=== PATIENT | female | born 1970 ===

== ENCOUNTER 2022-12-08 16:00 | Emergency (ER) | payer MEDICAID, SELFPAY ==
--- NOTE | ~2022-12-08 | CT_ITS ---
EXAMINATION: CT ABDOMEN AND PELVIS WITH CONTRAST CLINICAL INFORMATION: Epigastric, right upper quadrant pain. Concern for biliary disease COMPARISON: The report of right upper quadrant ultrasound does not indicate any overt acute right upper quadrant abnormality. TECHNIQUE: Multidetector volumetric images were obtained from the superior aspect of the liver through the pubic symphysis following administration 85 mL of Omnipaque 350 intravenous contrast. Sagittal and coronal reformatted images were obtained on the technologist's workstation. Oral contrast: No This CT examination was performed using dose optimization techniques as appropriate, variously including the following: *Automated exposure control *Adjustment of mA and/or kV according to patient size (this includes techniques or standardized protocols for targeted exams where dose is matched to indication/reason for exam; i.e. extremities or head) *Use of iterative reconstruction technique DLP: 591 mGy-cm FINDINGS: LUNG BASES: Nonspecific linear opacity left lower lung could be fibrosis or atelectasis. LIVER, GALLBLADDER, AND BILIARY TREE: No suspicious focal liver lesion. The gallbladder is contracted. No opaque calculus. No biliary dilation. PANCREAS: Fatty change. No suspicious mass. SPLEEN: The spleen is relatively small. No focal abnormality. ADRENAL GLANDS: Within normal limits KIDNEYS AND URETERS: The left kidney measures at least 10.9 cm in greatest length. The right kidney measures at least 5.4 cm in greatest length. There is diminished enhancement of the right kidney. There is no dilation of the collecting system. No suspicious renal mass. BLADDER: The bladder is not well distended. The bladder wall may be slightly thickened. GASTROINTESTINAL TRACT: No localized colonic wall thickening. No pericolonic fat stranding. No CT evidence of acute appendicitis. No significant small bowel dilation. The stomach is distended. ABDOMINAL WALL: There are some clips in the lower midline abdominal wall. There is a ventral hernia just below the umbilicus. There is some eventration of the abdominal wall. LYMPH NODES: There are no measurably enlarged abdominal or pelvic lymph nodes. There is no free intraperitoneal fluid. VASCULAR: There is no abdominal aortic aneurysm. The portal vein enhances. PELVIC VISCERA: No suspicious abnormality of the uterus or adnexa. OSSEOUS STRUCTURES: No suspicious focal lesion. There is disc disease in the lower spine. CT/CT abdomen pelvis w IV con IMPRESSION: The gallbladder is contracted and there is no biliary dilation. There is marked right renal atrophy. The stomach is somewhat distended. Ventral hernia with fat. Fleischner guidelines were followed.
--- NOTE | ~2022-12-08 | US_ITS ---
EXAMINATION: US ABDOMEN LIMITED CLINICAL INFORMATION: Right upper quadrant tenderness. COMPARISON: None available. TECHNIQUE: Real-time imaging of the right upper quadrant abdominal viscera. FINDINGS: PANCREAS: Visualized portions unremarkable. LIVER: Unremarkable. GALLBLADDER: Mildly distended without significant intraluminal abnormality. Color Doppler showed no abnormal vascular flow. COMMON BILE DUCT: Normal in caliber measuring 0.3 cm in diameter. RIGHT KIDNEY: Not visualized. FREE FLUID: None. US/US abdomen limited IMPRESSION: Limited study without overt acute right upper quadrant abnormality. If symptoms persist or worsen, short-term repeat right upper quadrant abdominal ultrasound is recommended as clinically indicated.
--- NOTE | 2022-12-08 16:32 | ED_ITS ---
HPI - General Adult General Chief complaint: Abdominal Pain Stated complaint: Sent by Dr Oglesby Seen by Provider: 12/08/22 18:19 Source: patient Mode of arrival: ambulatory Limitations: no limitations History of Present Illness HPI narrative: This 52-year-old female who presents emergency department for evaluation of epigastric and right upper quadrant pain times months. She states that initially the pain was intermittent but over the last 2 weeks the pain is been constant and more frequent. Patient points to her epigastric area and right upper quadrant when asked to localize the pain. She describes the pain is a tender/bruise like pain which has sharp component the radiates to her back. The pain is worse after she eats fried food. She states she recently made fried pork chops approximately 30 minutes after eating the pain she developed epigastric, right upper quadrant pain that radiated to her back. She states the pain lasted all day. She had associated nausea with no vomiting. Patient states that today she again developed right upper quadrant epigastric pain. The pain was 8/10. She called her PCP who referred her to [facility] urgent care. Patient was noted to have significant right upper quadrant pain and was referred to the emergency department for evaluation for possible biliary disease. Patient states that over the last 2.5 weeks she has been having diarrhea. She has 4-5 episodes of watery diarrhea with small bits of stool in the diarrhea. She has not noticed any blood in the diarrhea, she denied dark tarry stools. She has not been on antibiotics recently. She has not left the country recently. I did review the note that was sent in by Dr. Jovon Thomas from [facility] urgent care. Patient was noted to have right upper quadrant tenderness there was guarding there was a reducible umbilical hernia noted as well. Related Data Previous Rx's Medication Instructions Recorded omeprazole 20 mg capsule,delayed 20 mg PO DAILY 6 weeks #42 caps 12/08/22 release Allergies Allergy/AdvReac Type Severity Reaction Status Date / Time acetaminophen [From Percocet] Allergy Mild ITCHING Unverified 12/08/22 16:33 oxycodone [From Percocet] Allergy Mild ITCHING Unverified 12/08/22 16:33 Review of Systems Review of Systems: Yes all other systems are reviewed and are negative [facility] Past Medical History Attestation statement: The following information was validated with the patient. [facility] Narrative: Past medical history: Acquired hypothyroidism, hypertension, neuromyelitis optica, hypercholesterolemia, tobacco use disorder, disseminated herpes zoster. Surgical history: x4. Social history: Patient smokes 1/2 pack of cigarettes per day. She denies alcohol use. She denies drug use. Medical History (Updated 12/09/22 @ 00:01 by Alfonso More) Hyperlipidemia Surgical History (Updated 12/08/22 @ 18:06 by Wanda Miller) Hx of section Social History Social History Alcohol intake: never Smoked in Last 30 Days: Yes Use of substances other than those prescribed or required for medical reasons: No Advance Directives: No Advance Directives Information Provided: No Patient : No Physical Exam ED Vital Signs: Vital Signs - 24 hr 12/08/22 16:33 12/08/22 17:59 12/08/22 19:05 Temperature 96.6 F L 97.6 F 97.7 F Pulse Rate 60 64 73 Respiratory Rate 16 14 18 Blood Pressure 144/74 H 132/73 120/54 L Pulse Oximetry 98 98 95 Oxygen Delivery Method Room Air Room Air Room Air 12/08/22 21:22 Temperature 97.9 F Pulse Rate 58 Respiratory Rate 16 Blood Pressure Pulse Oximetry 95 Oxygen Delivery Method Room Air BMI result Body Mass Index 30.0 Const General: cooperative and no acute distress Orientation/consciousness: oriented to person and oriented to place Limitations: no limitations HENMT Head: Yes normal to inspection, Yes normocephalic and Yes atraumatic Ears: external ears normal General nose exam: Normal external nose present Face and sinus: Yes normal facial exam Mouth: Normal oral and palatal mucosa present Throat: Yes posterior oropharynx normal Eyes General: appearance normal, both eyes and all related structures Pupils: Equal, round and reactive pupils present Neck Neck: Yes normal visual inspection, Yes no lymphadenopathy, Yes trachea midline and Yes supple Chest Chest palpation & inspection: normal inspection of the chest and normal palpation of entire chest wall Resp Effort & Inspection: normal respiratory effort and able to speak in complete sentences Auscultation: clear to auscultation bilaterally Cardio Rate: regular rate Rhythm: regular rhythm Heart sounds: S1 normal heart sound present, S2 normal heart sound present and no murmurs GI Other: Patient has moderate right upper quadrant tenderness, no rebound, no voluntary or involuntary guarding. She has normoactive bowel sounds. Patient does have an umbilical hernia which is tender but easily reducible. Patient has a v ertical surgical scar from the umbilicus to the pubis area consistent with her for C-sections. No hernia noted along the scar. General: Yes no CVA tenderness Back/Spine/Pelvis Back: no CVA tenderness Skin General skin exam: no rashes or lesions noted Neuro General: oriented to person and oriented to place Cranial nerves: Yes CN's II-XII intact bilaterally and Yes Equal, round and reactive pupils present Cognition (Neuro): normal cognition Motor exam (neuro): 5/5 motor strength present throughout Extrem General: Yes normal to inspection Psych Appearance: grossly normal Speech and movement: Normal speech and movement present Affect: normal affect Attitude: cooperative Course Course Course Narrative: This is a rapid medical exam: Additional HPI, ROS, PE not included below will be deferred to primary provider. Patient is a 52-year-old female presenting to the emergency department with RUQ abdominal pain and nausea for the past 2-3 days. Diarrhea for the past 2-2.5 weeks, excessive gas. PCP referred here. Reports chills but denies fever. Abdomen soft, RUQ TTP, normoactive bowel sounds. History of c-sections. Plan: labs, UA, RUQ ultrasound Medications Administered Discontinued Medications Generic Name Dose Route Start Last Admin Trade Name Freq PRN Reason Stop Dose Admin Sodium Chloride 1,000 mls @ 999 mls/hr 12/08/22 18:51 12/08/22 20:53 Ns IV 12/08/22 19:51 Infused .Q1H1M STA Infusion Iohexol 100 ml 12/08/22 20:08 12/08/22 20:08 Iohexol 350 Mg/Ml 100 Ml Infus..Btl IV 12/08/22 20:09 85 ml ONCE ONE Administration Ketorolac Tromethamine 15 mg 12/08/22 18:51 12/08/22 19:40 Ketorolac Tromethamine 15 Mg/Ml Vial IVPUSH 12/08/22 18:52 15 mg ONCE STA Administration Ondansetron HCl 4 mg 12/08/22 18:51 12/08/22 19:40 Ondansetron Hcl 4 Mg/2 Ml Vial IVPUSH 12/08/22 18:52 4 mg ONCE ONE Administration Medical Decision Making Medical Decision Making MDM Narrative: 52-year-old female who presents emergency department for evaluation of intermittent right upper quadrant, epigastric, worse after eating food, that does radiate to her back. She has had the pain intermittently for several months but the pain is been more constant frequent over the past 2 weeks. Pain seems to be exacerbated by eating fatty food-30 minutes after eating. Patient also has developed diarrhea over the past 2.5 weeks with no bloody or tarry stools. She has not been on antibiotics and she has had no recent travel. Past surgical history is significant for 4 C-sections, she has a known umbilical hernia. Vital signs revealed an elevated blood pressure 144/74. Patient does moderate right upper quadrant tenderness with no rebound, she has a reducible umbilical hernia which is tender. Following tests were ordered on the patient: CBC, CMP, lipase, urinalysis, COVID-19, influenza, RSV right upper quadrant ultrasound, CT scan of the abdomen pelvis with IV contrast. I ordered normal saline x1 L, Toradol 15 mg IV and Zofran 4 mg IV. 1858: Laboratory evaluation was interpreted by me as follows: Normal CBC, CMP, lipase. COVID-19, RSV and influenza were negative. Ultrasound revealed mild distension of the gallbladder otherwise unremarkable. 2218: The patient's CT scan of the abdomen pelvis with IV contrast revealed contracted gallbladder, but no finding to explain the patient's pain Patient will be treated for possible gastritis as a cause for pain. Patient will need HIDA scan as an outpatient to rule out biliary colic as the cause of her pain is well. She was given printed and verbal instructions discharged home Differential Diagnosis Differential Diagnoses: The differential diagnosis associated with the presentation includes 1858: Differential diagnosis includes was not limited to biliary colic, gallstones, pancreatitis, colitis, viral syndrome, gastritis, peptic ulcer disease Admission/Observation Consideration of admission/observation: Escalation of care including admission/observation considered Lab Data MDM Lab Attestation statement: I reviewed the patient's lab results. My interpretation patient's laboratory data is as follows: Normal, does not lead to specific diagnosis 12/08/22 17:19 12/08/22 17:19 Labs: Lab Results 12/08/22 12/08/22 12/08/22 Range/Units 17:19 17:19 21:25 WBC 9.7 (4.8-10.8) X10*3/uL RBC 5.08 (4.20-5.50) X10*6/uL Hgb 15.7 (12.0-16.0) g/dl Hct 46.3 (37.0-47.0) % MCV 91.1 (80.0-98.0) fL MCH 30.9 (27.0-33.0) pg MCHC 33.9 (31.0-35.0) g/dl RDW 14.0 (11.0-16.0) % Plt Count 288 (160-400) X10*3/uL MPV 9.8 (9.4-12.3) fL Immature Gran % (Auto) 0.3 (0.0-0.4) % Neut % (Auto) 55.2 (45-73) % Lymph % (Auto) 34.1 (20-40) % [place] % (Auto) 8.5 (2-11) % Eos % (Auto) 1.6 (0-4) % Baso % (Auto) 0.3 (0-2) % Lymph # (Auto) 3.3 (1.2-4.9) X10*3/uL [place] # (Auto) 0.8 (0.1-1.2) X10*3/uL Eos # (Auto) 0.2 (0.0-0.4) X10*3/uL Baso # (Auto) 0.0 (0.0-0.2) X10*3/uL Abs Immat Gran (auto) 0.03 (0.00-0.03) X10*3/uL Absolute Neuts (auto) 5.4 (2.0-8.3) x10*3/uL Absolute Nucleated RBC 0.000 (0.0-0.012) X10*3/uL Nucleated RBC % (auto) 0.0 (0.0-0.2) /100WBC Sodium 142 (135-145) mmol/L Potassium 4.2 (3.3-5.1) mmol/L Chloride 106 (96-108) mmol/L Carbon Dioxide 25 (22-29) mmol/L Anion Gap 15 (12-20) BUN 16 (9-16) mg/dL Creatinine 1.19 (0.5-1.4) mg/dL Estim Creat Clear Calc 59.8 Estimated GFR 47 Random Glucose 110 (60-115) mg/dL Calcium 9.8 (8.4-10.2) mg/dL Total Bilirubin 0.5 (0.0-1.0) mg/dL AST 19 (5-31) U/L ALT 17 (0-31) U/L Alkaline Phosphatase 84 (39-117) U/L Total Protein 7.8 (6.5-8.0) g/dL Albumin 4.3 (3.5-5.0) g/dL Lipase 15 (8-78) U/L Urine Color Yellow Urine Appearance Clear Urine pH 5.5 (5.0-9.0) Ur Specific Bridger 1.015 (1.005-1.025) Urine Protein Negative (Neg-Trace) mg/dL Urine Glucose (UA) Negative (Negative) mg/dL Urine Ketones Negative (Negative) mg/dL Urine Blood Small (1+) H (Negative) Urine Nitrite Negative (Negative) Ur Leukocyte Esterase Moderate (2+) H (Negative) Urine RBC 3-5 H (0-2) /HPF Urine WBC 21-50 H (0-5) /HPF Ur Squamous Epith Cells 6-10 (0-2) /HPF Urine Bacteria 2+ (None Seen) Hyaline Casts 0-2 (0-2) /LPF Radiology Impression Discussion of test interpretation with radiology: I have reviewed the radiologist's reading. Radiologist Impression: US abdomen limited IMPRESSION: Limited study without overt acute right upper quadrant abnormality. If symptoms persist or worsen, short-term repeat right upper quadrant abdominal ultrasound is recommended as clinically indicated. Dictated By:Cy Cowan MD CT abdomen pelvis w IV con IMPRESSION: The gallbladder is contracted and there is no biliary dilation. There is marked right renal atrophy. The stomach is somewhat distended. Ventral hernia with fat. Fleischner guidelines were followed. Dictated By:Ole Renae MD Prescription Management I considered prescription management with: Other (H2 poli) Chronic Conditions Patient?s care impacted by: Other (High cholesterol, hypertension) Discharge Plan Discharge Clinical Impression: Gastritis, Biliary colic Patient Disposition: Home, Self-Care Instructions: Gastritis (ED), Biliary Colic (ED) Additional Instructions: Your blood work was normal which is reassuring. The ultrasound of your gallbladder did not reveal any gallstones and no being of your gallbladder wall. The CT scan of your abdomen pelvis did not reveal a clear cause for your pain. At this time, I am going to treat you for inflammation of your stomach (gastritis) Take Prilosec (omeprazole) 20 mg pills, 1 pill once a day for 6 weeks. This medication shuts off your acid production and lets the inflammation in your stomach and esophagus heal. You need to take this medication for 6 weeks. Your pain could still be caused by a gallbladder that does not squeeze appropriately. You will need a HIDA scan as an outpatient, this can be ordered by your doctor. HIDA scan will test how well your gallbladder functions and squeezes and if you have a dysfunctional gallbladder were then you will need to see a surgeon to see if your gallbladder needs to be removed. Follow-up with your doctor in 2 days. Please return to the emergency department if your symptoms get worse or if you d evelop any symptoms that are concerning to you. Prescriptions: New omeprazole 20 mg capsule,delayed release(DR/EC) 20 mg PO DAILY 42 Days Qty: 42 0RF Interventions: ED Discharge Assessment Last Done: 12/08/22 22:51 Discharge Date/Time: 12/08/22 22:53
[2022-12-08 16:33] VITALS: BP 144/74; PULSE 60; RESP 16; TEMP 35.9; O2SAT 98
[2022-12-08 17:30] LABS: MANUAL DIFF FLAG NO
[2022-12-08 17:31] LABS: Basophils Percent Auto 0.3 % (0-2); Eosinophils Absolute Auto 0.2 X10*3/uL (0.0-0.4); Eosinophils Percent Auto 1.6 % (0-4); Hematocrit 46.3 % (37.0-47.0); Hemoglobin 15.7 g/dl (12.0-16.0); Imm Gran Abs Auto 0.03 X10*3/uL (0.00-0.03); Imm Gran Pct Auto 0.3 % (0.0-0.4); Lymphocytes Absolute Auto 3.3 X10*3/uL (1.2-4.9); Lymphocytes Percent Auto 34.1 % (20-40); Mean Corpuscular HGB Conc 33.9 g/dl (31.0-35.0); Mean Corpuscular Hemoglobin 30.9 pg (27.0-33.0); Mean Corpuscular Volume 91.1 fL (80.0-98.0); Mean Platelet Volume 9.8 fL (9.4-12.3); Monocytes Absolute Auto 0.8 X10*3/uL (0.1-1.2); Monocytes Percent Auto 8.5 % (2-11); Neutrophils Absolute Auto 5.4 x10*3/uL (2.0-8.3); Neutrophils Percent Auto 55.2 % (45-73); Platelet Count 288 X10*3/uL (160-400); Red Blood Count 5.08 X10*6/uL (4.20-5.50); White Blood Count 9.7 X10*3/uL (4.8-10.8)
[2022-12-08 17:48] LABS: Alanine Aminotransferase 17 U/L (0-31); Albumin Level 4.3 g/dL (3.5-5.0); Alkaline Phosphatase 84 U/L (39-117); Anion Gap 15 (12-20); Aspartate Amino Transferase 19 U/L (5-31); Bilirubin Total 0.5 mg/dL (0.0-1.0); Blood Urea Nitrogen 16 mg/dL (9-16); Calcium 9.8 mg/dL (8.4-10.2); Carbon Dioxide 25 mmol/L (22-29); Chloride 106 mmol/L (96-108); Creatinine Clr Calc Pharmacy 59.8; Estimated Glomerular Filt Rate 47; Glucose Random 110 mg/dL (60-115); Lipase 15 U/L (8-78); Potassium 4.2 mmol/L (3.3-5.1); Sodium 142 mmol/L (135-145); Total Protein 7.8 g/dL (6.5-8.0)
[2022-12-08 17:59] VITALS: BP 132/73; PULSE 64; RESP 14; TEMP 36.4; O2SAT 98
--- NOTE | 2022-12-08 18:19 | PC.NURSE ---
pt a&ox3, vss, pt states that she's coming in with right abdominal pain that radiates underneath her ribcage and towards her flank area. pt states 5/10 pain that accompanies with nausea, gas, and diarrhea. pt states that she has has an increase in diarrhea the past few days, hyperactive bs noted upon auscultation, tenderness and distension noted upon palpation.
[2022-12-08 19:05] VITALS: BP 120/54; PULSE 73; RESP 18; TEMP 36.5; O2SAT 95
[2022-12-08] MEDS: Ketorolac Tromethamine 15 MG/ML VIAL IVPUSH (19:40)
[2022-12-08] MEDS: ondansetron HCL 4 MG/2 ML VIAL IVPUSH (19:40)
[2022-12-08] MEDS: 0.9 % Sodium Chloride 1,000 ML 999 ML IV (19:43)
[2022-12-08] MEDS: iohexoL 350 MG/ML 100 ML INFUS..BTL IV (20:08)
[2022-12-08 21:22] VITALS: PULSE 58; RESP 16; TEMP 36.6; O2SAT 95
[2022-12-08 21:32] LABS: Appearance Urine Clear; Color Urine Yellow; Glucose Urine UA Negative (Negative); Leukocyte Esterase Urine Moderate (2+) (Negative); Nitrite Urine Negative (Negative); PH 5.5 (5.0-9.0); Specific Gravity - Urine 1.015 (1.005-1.025); UMIC TRIGGER UACC YES; Urine Blood Small (1+) (Negative); Urine Ketones Negative (Negative); Urine Protein Negative (Neg-Trace)
[2022-12-08 21:54] LABS: Bacteria Urine 2+ (None Seen); Hyaline Casts Urine 0-2 /LPF (0-2); UACC Culture Trigger YES; WBC Urine 21-50 /HPF (0-5)
--- NOTE | 2022-12-08 22:45 | PC.NURSE ---
pt assessed, denies any pain
== END 2022-12-08 22:53 | disposition home or self-care (01) ==
PROVIDERS: Registered Nurse Emergency; Emergency Provider Emergency Medicine Emergency Medical Services; PCP Student in an Organized Health Care Education/Training Program
DX: K29.70 Gastritis, unspecified, without bleeding (principal); K80.50 Calculus of bile duct without cholangitis or cholecystitis without obstruction; E78.5 Hyperlipidemia, unspecified
CPT/HCPCS: 36415; 74177; 76705; 80053; 81001; 83690; 85025; 87086; 96361; 96374; 96375; 99284; 99285; J1885; J2405; Q9967

== ENCOUNTER 2022-12-08 17:30 | Outpatient (REF) | payer MEDICAID, SELFPAY ==
[2022-12-08 18:20] LABS: Influenza A PCR NEGATIVE (Negative); Influenza B PCR NEGATIVE (Negative); Resp Syncy Virus RNA Qual PCR NEGATIVE (Negative); SARS COV2 PCR INHOUSE NEGATIVE (Negative)
== END 2022-12-08 17:31 | disposition home or self-care (01) ==
LOC: HO.HHCL 17:30
PROVIDERS: Visit Provider Emergency Medicine
DX: R10.11 Right upper quadrant pain (principal); Z20.822 Contact with and (suspected) exposure to COVID-19
CPT/HCPCS: 0241U

== ENCOUNTER → 2022-12-24 08:20 | Outpatient (REF) | payer MEDICAID, SELFPAY ==
--- NOTE | ~2022-12-24 | NM_ITS ---
BILIARY TRACT IMAGING STUDY CLINICAL INDICATION: Recurrent right upper quadrant pain. PROCEDURE: Scintillation camera images were obtained over the abdomen for an observation of 60 minutes following the intravenous administration of 5 millicuries technetium 99m Mebrofenin. COMPARISON: No previous biliary scan is available for comparison. CT scan of the abdomen and pelvis and abdominal ultrasound, both dated 12/08/2022 are available for comparison.. FINDINGS: There is good concentration of activity in the liver by 5 minutes post injection. Biliary activity is well visualized by 20 minutes, and there is good visualization of small bowel activity by 45 minutes. The gallbladder is well visualized by 40 minutes. NM/NM hepatobiliary wo pharm IMPRESSION: Normal biliary scan. Visualization of the gallbladder is evidence of a patent cystic duct and strong evidence against the diagnosis of acute cholecystitis. The common bile duct is patent. Liver function appears normal.
== END ==
LOC: HO.NUCMED 08:20
PROVIDERS: PCP Student in an Organized Health Care Education/Training Program; Visit Provider Internal Medicine
DX: R10.11 Right upper quadrant pain (principal)
CPT/HCPCS: 78226; A9537

== ENCOUNTER 2023-01-20 11:06 | Emergency (ER) | payer MEDICAID, SELFPAY ==
--- NOTE | ~2023-01-20 | CT_ITS ---
EXAMINATION: CT ABDOMEN AND PELVIS WITHOUT CONTRAST CLINICAL INFORMATION: Right lower quadrant pain. Nausea. COMPARISON: CT scan abdomen pelvis 12/08/2022 TECHNIQUE: Multidetector volumetric imaging was performed from the superior aspect of the liver through the pubic symphysis. Sagittal and coronal reformatted images were obtained on the technologist's workstation. This CT examination was performed using dose optimization techniques as appropriate, variously including the following: *Automated exposure control *Adjustment of mA and/or kV according to patient size (this includes techniques or standardized protocols for targeted exams where dose is matched to indication/reason for exam; i.e. extremities or head) *Use of iterative reconstruction technique DLP: 454 mGy-cm FINDINGS: LUNG BASES: The visualized lung bases are unremarkable. LIVER, GALLBLADDER, AND BILIARY TREE: The liver is normal in size, shape, and attenuation. No focal hepatic lesion or biliary ductal dilatation is present. The gallbladder is unremarkable with no evidence of radiopaque gallstones, gallbladder wall thickening, or obvious pericholecystic inflammatory changes. PANCREAS: Fatty atrophy of the pancreas. No pancreatic mass or inflammation. No pancreatic duct dilatation. SPLEEN: Spleen is small in size. Spleen measures 7.5 cm AP by 2.5 cm transverse. No splenic lesion. ADRENAL GLANDS: Unremarkable. KIDNEYS AND URETERS: Right kidney is atrophic. Left kidney is normal in size and contour cortical thickness. There is no renal or ureteral calculus. There is no hydronephrosis. BLADDER: Unremarkable. GASTROINTESTINAL TRACT: The small and large bowel are unremarkable. The appendix is normal. There is no inflammation of the mesentery.. ABDOMINAL WALL: There is a fat-containing ventral hernia just inferior to the umbilicus. This measures approximately 3.5 4.3 x 2.2 cm. No change since prior study. LYMPH NODES: Normal. VASCULAR: Small volume of scattered vascular wall calcifications of aorta and iliac arteries. There is no aneurysm. PELVIC VISCERA: Unremarkable. OSSEOUS STRUCTURES: Multilevel degenerative spondylosis spine. CT/CT abdomen pelvis wo IV con IMPRESSION: No acute abnormality CT scan abdomen pelvis. Fleischner guidelines were followed.
[2023-01-20 11:42] VITALS: BP 143/90; PULSE 66; RESP 18; TEMP 36.6; O2SAT 98; BMI 30.1
--- NOTE | 2023-01-20 11:42 | ED.GENADULT ---
HPI - General Adult General Chief complaint: Abdominal Pain Stated complaint: lower r side abd pain Time Seen by Provider: 01/20/23 15:57 Source: patient Mode of arrival: ambulatory Limitations: no limitations History of Present Illness HPI narrative: Patient is a 52-year-old female who presents emergency department for evaluation of abdominal pain. She reports sudden onset of right lower quadrant/right groin abdominal pain last night. The pain has been constant since its onset with varying intensity. She is unable to describe the quality of the pain. She denies any identifiable alleviating or exacerbating factors. Denies any history of similar pain in the past. She reports that she has a hernia for which she is going to see the general surgeon for 02/02/2023 which she is not certain where the hernia is, ? umbilical hernia. She denies fevers, chills, nausea, vomiting, chest pain, shortness of breath, urinary frequency/urgency/hesitancy, bloody or black stools. When asked she endorses both diarrhea and constipation however she had a normal bowel movement earlier today without any straining. Related Data Previous Rx's Medication Instructions Recorded omeprazole 20 mg capsule,delayed 20 mg PO DAILY 6 weeks #42 caps 12/08/22 release Allergies Allergy/AdvReac Type Severity Reaction Status Date / Time acetaminophen [From Percocet] Allergy Mild ITCHING Verified 01/20/23 11:42 oxycodone [From Percocet] Allergy Mild ITCHING Verified 01/20/23 11:42 Review of Systems Review of Systems: Constitutional : No Weight loss, No Fever, No Chills ENT/Mouth :? No sore throat, No Rhinorrhea Eyes: No Swelling, No Redness Cardiovascular : No Chest Pain, No SOB, No Edema Respiratory : No Cough, No Sputum, No Wheezing Gastrointestinal : No Nausea, no Vomiting, positive Diarrhea, positive abdominal pain, No Hematochezia, No Melena Genitourinary : No Dysuria, No Urinary Frequency, No Hematuria, No Urgency? Musculoskeletal : No joint pain, No Myalgias, No Joint Swelling Skin : No Skin Lesions, No rash Neuro : No Weakness, No Numbness, No Dizziness, No Headache Psych : No Anxiety/Panic, No Depression Yes all other systems are reviewed and are negative [facility] Past Medical History Medical History (Updated 01/20/23 @ 19:36 by Marisa Andrew CNP) Hyperlipidemia Surgical History (Updated 12/08/22 @ 18:06 by Wanda Miller) Hx of section Social History Social History Alcohol intake: current Alcohol intake frequency: holidays/special occasions only Smoked in Last 30 Days: Yes Use of substances other than those prescribed or required for medical reasons: No Advance Directives: No Advance Directives Information Provided: Yes Physical Exam ED Vital Signs: Vital Signs - 24 hr 01/20/23 11:42 01/20/23 15:42 01/20/23 17:28 Temperature 98 F Pulse Rate 66 60 61 Respiratory Rate 18 18 16 Blood Pressure 143/90 H 133/67 142/52 H Pulse Oximetry 98 98 99 Oxygen Delivery Method Room Air Room Air Room Air BMI result Body Mass Index 30.1 Appearance: Alert.?Oriented to person, place and time. No acute distress.?Normal affect. Eyes: Pupils equal, round and reactive to light.? ENT: Pharynx normal.?? Neck: Normal inspection.? Neck supple.?? CVS: Heart sounds normal. Normal heart rate and rhythm.? Pulses normal.?? Respiratory: No respiratory distress.? Lung sounds clear to auscultation bilaterally?? Abdomen: Soft with tenderness upon palpation to the right lower quadrant/groin, no rebound tenderness, no rigidity, no guarding. No CVA tenderness. Normoactive bowel sounds. No pulsatile mass.?? Skin: Skin warm and dry.? Normal skin color.? Extremities: No lower extremity edema.? Neuro: Moves all extremities spontaneously. Sensation intact bilaterally. No focal neuro deficits. Ambulates with normal steady gait. Course Course Course Narrative: RME- he started 52-year-old female presents for evaluation of right lower abdominal pain. Patient has a history of a right inguinal hernia. Pain worse since yesterday. Plan for labs, UA Reevaluation(s) Reevaluation #1: CBC reveals no evidence of leukocytosis, no anemia, it is unremarkable. CMP is overall unremarkable. Lipase is within normal limits. Urinalysis without evidence of infection or microscopic hematuria. HCG is negative. No lactic acidosis. CT of the abdomen and pelvis without acute abnormality. Reviewed these findings with patient at this time. Discussed possibility of renal colic secondary to passed stone, hence no evidence on CT scan of active calculi, verses musculoskeletal etiology. Advised use of acetaminophen/ibuprofen, rest, ice/heat, outpatient follow-up with primary care provider in 1-3 days. Discussed worrisome signs and symptoms that would warrant re-evaluation in the emergency department. All questions were answered. Stable for discharge. Time: 19:23 Medications Administered Discontinued Medications Generic Name Dose Route Start Last Admin Trade Name Pavelq PRN Reason Stop Dose Admin Sodium Chloride 1,000 mls @ 999 mls/hr 01/20/23 16:30 01/20/23 17:52 Ns IV 01/20/23 17:30 Infused .Q1H1M KAL Infusion Medical Decision Making Medical Decision Making [facility] Narrative: Patient is a 52-year-old female past medical history of GERD, ventral hernia who presents emergency department for evaluation of right lower quadrant abdominal pain. At the time of my examination she is overall well-appearing, nontoxic, afebrile. Tenderness to the right lower quadrant of the abdomen upon examination, at this time not consistent with acute abdomen upon exam. Will obtain CBC to evaluate for leukocytosis/ anemia, CMP and lipase to evaluate for abnormal electrolytes /abnormal renal function/ abnormal hepatic/biliary function, CT of the abdomen and pelvis and Urinalysis. Declines pain medication at the time of my examination. Differential Diagnosis Differential Diagnoses: The differential diagnosis associated with the presentation includes (Appendicitis, diverticulitis, colitis, bowel obstruction, nephrolithiasis, ureteral calculi, hydronephrosis, pyelonephritis, urinary tract infection, ovarian cyst, ovarian torsion, muscular pain, hernia) Admission/Observation Consideration of admission/observation: Escalation of care including admission/observation considered (I considered admission for abdominal pain, see course narrative for further detail) Lab Data [facility] Lab Attestation statement: I reviewed the patient's lab results. (See course narrative for further detail) 01/20/23 12:41 01/20/23 12:41 Labs: Lab Results 01/20/23 01/20/23 01/20/23 Range/Units 12:41 12:41 12:41 WBC 10.5 (4.8-10.8) X10*3/uL RBC 4.92 (4.20-5.50) X10*6/uL Hgb 15.2 (12.0-16.0) g/dl Hct 44.1 (37.0-47.0) % MCV 89.6 (80.0-98.0) fL MCH 30.9 (27.0-33.0) pg MCHC 34.5 (31.0-35.0) g/dl RDW 14.3 (11.0-16.0) % Plt Count 288 (160-400) X10*3/uL MPV 10.1 (9.4-12.3) fL Immature Gran % (Auto) 0.3 (0.0-0.4) % Neut % (Auto) 65.6 (45-73) % Lymph % (Auto) 25.7 (20-40) % [place] % (Auto) 6.5 (2-11) % Eos % (Auto) 1.7 (0-4) % Baso % (Auto) 0.2 (0-2) % Lymph # (Auto) 2.7 (1.2-4.9) X10*3/uL [place] # (Auto) 0.7 (0.1-1.2) X10*3/uL Eos # (Auto) 0.2 (0.0-0.4) X10*3/uL Baso # (Auto) 0.0 (0.0-0.2) X10*3/uL Abs Immat Gran (auto) 0.03 (0.00-0.03) X10*3/uL Absolute Neuts (auto) 6.9 (2.0-8.3) x10*3/uL Absolute Nucleated RBC 0.000 (0.0-0.012) X10*3/uL Nucleated RBC % (auto) 0.0 (0.0-0.2) /100WBC Sodium 141 (135-145) mmol/L Potassium 4.3 (3.3-5.1) mmol/L Chloride 109 H (96-108) mmol/L Carbon Dioxide 27 (22-29) mmol/L Anion Gap 9 L (12-20) BUN 16 (9-16) mg/dL Creatinine 1.08 (0.5-1.4) mg/dL Estim Creat Clear Calc 66.0 Estimated GFR 53 Random Glucose 99 (60-115) mg/dL Lactic Acid 0.9 (0.5-2.0) mmol/L Calcium 9.7 (8.4-10.2) mg/dL Total Bilirubin 0.4 (0.0-1.0) mg/dL AST 21 (5-31) U/L ALT 13 (0-31) U/L Alkaline Phosphatase 83 (39-117) U/L Total Protein 7.5 (6.5-8.0) g/dL Albumin 4.2 (3.5-5.0) g/dL Lipase 43 (8-78) U/L Urine Color Urine Appearance Urine pH (5.0-9.0) Ur Specific [place] (1.005-1.025) Urine Protein (Neg-Trace) mg/dL Urine Glucose (UA) (Negative) mg/dL Urine Ketones (Negative) mg/dL Urine Blood (Negative) Urine Nitrite (Negative) Ur Leukocyte Esterase (Negative) Urine RBC (0-2) /HPF Urine WBC (0-5) /HPF Ur Squamous Epith Cells (0-2) /HPF Urine Bacteria (None Seen) Hyaline Casts (0-2) /LPF Urine Test (NEGATIVE) 01/20/23 01/20/23 Range/Units 12:45 12:45 WBC (4.8-10.8) X10*3/uL RBC (4.20-5.50) X10*6/uL Hgb (12.0-16.0) g/dl Hct (37.0-47.0) % MCV (80.0-98.0) fL MCH (27.0-33.0) pg MCHC (31.0-35.0) g/dl RDW (11.0-16.0) % Plt Count (160-400) X10*3/uL MPV (9.4-12.3) fL Immature Gran % (Auto) (0.0-0.4) % Neut % (Auto) (45-73) % Lymph % (Auto) (20-40) % [place] % (Auto) (2-11) % Eos % (Auto) (0-4) % Baso % (Auto) (0-2) % Lymph # (Auto) (1.2-4.9) X10*3/uL [place] # (Auto) (0.1-1.2) X10*3/uL Eos # (Auto) (0.0-0.4) X10*3/uL Baso # (Auto) (0.0-0.2) X10*3/uL Abs Immat Gran (auto) (0.00-0.03) X10*3/uL Absolute Neuts (auto) (2.0-8.3) x10*3/uL Absolute Nucleated RBC (0.0-0.012) X10*3/uL Nucleated RBC % (auto) (0.0-0.2) /100WBC Sodium (135-145) mmol/L Potassium (3.3-5.1) mmol/L Chloride (96-108) mmol/L Carbon Dioxide (22-29) mmol/L Anion Gap (12-20) BUN (9-16) mg/dL Creatinine (0.5-1.4) mg/dL Estim Creat Clear Calc Estimated GFR Random Glucose (60-115) mg/dL Lactic Acid (0.5-2.0) mmol/L Calcium (8.4-10.2) mg/dL Total Bilirubin (0.0-1.0) mg/dL AST (5-31) U/L ALT (0-31) U/L Alkaline Phosphatase (39-117) U/L Total Protein (6.5-8.0) g/dL Albumin (3.5-5.0) g/dL Lipase (8-78) U/L Urine Color Straw Urine Appearance Clear Urine pH 6.0 (5.0-9.0) Ur Specific [place] <= 1.005 (1.005-1.025) Urine Protein Negative (Neg-Trace) mg/dL Urine Glucose (UA) Negative (Negative) mg/dL Urine Ketones Negative (Negative) mg/dL Urine Blood Trace (Negative) Urine Nitrite Negative (Negative) Ur Leukocyte Esterase Negative (Negative) Urine RBC 0-2 (0-2) /HPF Urine WBC 0-5 (0-5) /HPF Ur Squamous Epith Cells 0-2 (0-2) /HPF Urine Bacteria None Seen (None Seen) Hyaline Casts 0-2 (0-2) /LPF Urine Test NEGATIVE (NEGATIVE) Radiology Impression Discussion of test interpretation with radiology: I have reviewed the radiologist's reading. Radiologist Impression: CT/CT abdomen pelvis wo IV con IMPRESSION: No acute abnormality CT scan abdomen pelvis. ? Fleischner guidelines were followed. External Record Review External record reviewed: Outpatient record Discharge Plan Discharge Clinical Impression: Abdominal pain Patient Disposition: Home, Self-Care Instructions: Abdominal Pain (ED) Additional Instructions: You can take ibuprofen 200 mg, 3 tablets (600mg) every 6-8 hours as needed for pain, in addition to Tylenol 500 mg, 2 tablets (1,000mg) every 4-6 hours as needed for pain, but not to exceed 3 doses daily (3,000mg).? Contact your primary care provider and arrange for follow-up within 1-3 days You may return back to the emergency department any new or worsening symptoms or concerns. Prescriptions: No Action omeprazole 20 mg capsule,delayed release(DR/EC) 20 mg PO DAILY 42 Days Qty: 42 0RF Referrals: Roxane Mata MD [Primary Care Provider] -
[2023-01-20 12:50] LABS: MANUAL DIFF FLAG NO
[2023-01-20 13:01] LABS: Basophils Percent Auto 0.2 % (0-2); Eosinophils Absolute Auto 0.2 X10*3/uL (0.0-0.4); Eosinophils Percent Auto 1.7 % (0-4); Hematocrit 44.1 % (37.0-47.0); Hemoglobin 15.2 g/dl (12.0-16.0); Imm Gran Abs Auto 0.03 X10*3/uL (0.00-0.03); Imm Gran Pct Auto 0.3 % (0.0-0.4); Lymphocytes Absolute Auto 2.7 X10*3/uL (1.2-4.9); Lymphocytes Percent Auto 25.7 % (20-40); Mean Corpuscular HGB Conc 34.5 g/dl (31.0-35.0); Mean Corpuscular Hemoglobin 30.9 pg (27.0-33.0); Mean Corpuscular Volume 89.6 fL (80.0-98.0); Mean Platelet Volume 10.1 fL (9.4-12.3); Monocytes Absolute Auto 0.7 X10*3/uL (0.1-1.2); Monocytes Percent Auto 6.5 % (2-11); Neutrophils Absolute Auto 6.9 x10*3/uL (2.0-8.3); Neutrophils Percent Auto 65.6 % (45-73); Platelet Count 288 X10*3/uL (160-400); Red Blood Count 4.92 X10*6/uL (4.20-5.50); Red Cell Distribution Width 14.3 % (11.0-16.0); White Blood Count 10.5 X10*3/uL (4.8-10.8)
[2023-01-20 13:03] LABS: Appearance Urine Clear; Color Urine Straw; Glucose Urine UA Negative (Negative); Leukocyte Esterase Urine Negative (Negative); Nitrite Urine Negative (Negative); Specific Gravity - Urine <= 1.005 (1.005-1.025); UMIC TRIGGER UACC YES; Urine Blood Trace (Negative); Urine Ketones Negative (Negative); Urine Protein Negative (Neg-Trace)
[2023-01-20 13:07] LABS: Bacteria Urine None Seen (None Seen); Hyaline Casts Urine 0-2 /LPF (0-2); RBC Urine 0-2 /HPF (0-2); Squamous Epithelial Cell Urine 0-2 /HPF (0-2); WBC Urine 0-5 /HPF (0-5)
[2023-01-20 13:07] LABS: Lactic Acid 0.9 mmol/L (0.5-2.0)
[2023-01-20 13:11] LABS: Alanine Aminotransferase 13 U/L (0-31); Albumin Level 4.2 g/dL (3.5-5.0); Alkaline Phosphatase 83 U/L (39-117); Anion Gap 9 (12-20); Aspartate Amino Transferase 21 U/L (5-31); Bilirubin Total 0.4 mg/dL (0.0-1.0); Blood Urea Nitrogen 16 mg/dL (9-16); Calcium 9.7 mg/dL (8.4-10.2); Carbon Dioxide 27 mmol/L (22-29); Chloride 109 mmol/L (96-108); Estimated Glomerular Filt Rate 53; Glucose Random 99 mg/dL (60-115); Lipase 43 U/L (8-78); Potassium 4.3 mmol/L (3.3-5.1); Sodium 141 mmol/L (135-145); Total Protein 7.5 g/dL (6.5-8.0)
[2023-01-20 15:42] VITALS: BP 133/67; PULSE 60; RESP 18; O2SAT 98
[2023-01-20 16:36] LABS: UPreg QC Valid YES; Urine Pregnancy NEGATIVE (NEGATIVE)
[2023-01-20] MEDS: 0.9 % Sodium Chloride 1,000 ML 999 ML IV (16:51)
[2023-01-20 17:28] VITALS: BP 142/52; PULSE 61; RESP 16; O2SAT 99
== END 2023-01-20 19:46 | disposition home or self-care (01) ==
PROVIDERS: Nurse Practitioner Family; Physician Assistant; Emergency Provider Emergency Medicine; PCP Student in an Organized Health Care Education/Training Program
DX: R10.31 Right lower quadrant pain (principal); K40.90 Unilateral inguinal hernia, without obstruction or gangrene, not specified as recurrent; E78.5 Hyperlipidemia, unspecified; Z79.899 Other long term (current) drug therapy
CPT/HCPCS: 36415; 74176; 80053; 81001; 81025; 83605; 83690; 85025; 96360; 99284

== ENCOUNTER 2023-02-02 12:54 | Outpatient (AMB) | payer MEDICAID, SELFPAY ==
[2023-02-02 13:10] VITALS: BP 138/74; PULSE 60; BMI 29.9
--- NOTE | 2023-02-02 13:10 | A.OFFVIS_ITS ---
Intake Vital Signs 02/02/23 13:10 Height 5 ft 6 in Weight 185 lb BMI 29.9 BP 138/74 Blood Pressure Location Rt brachial Position Sitting Pulse 60 Intake Visit Reasons: Umbilical hernia Intake Note: This patient presents for an assessment for an umbilical hernia. Patient c/o; Onset 1 year, describes discomfort, reducible, denies problems with bowel movements. Acls Nurse Required: No Accompanied by: Self / Same As Patient Allergies acetaminophen [From Percocet] Allergy (Mild, Verified 02/02/23 13:15) ITCHING oxycodone [From Percocet] Allergy (Mild, Verified 02/02/23 13:15) ITCHING Medication List - Last Reconciled 02/02/23 by Joseph De La O MD atorvastatin 80 mg PO BEDTIME levothyroxine 100 mcg PO DAILY loratadine 10 mg PO QAM naproxen 500 mg PO BID omeprazole 20 mg PO DAILY 6 weeks HPI Umbilical hernia HPI Details 52-year-old female referred for an umbilical hernia. She has noticed this reducible lump on her umbilicus for over 2 years now. She says that this gets periodically painful. She says sometimes the lump gets bigger. She otherwise has no other significant complaints. She does have a history of Graves disease and had undergone thyroidectomy about 30 years ago. She says she was at that time and she had to undergo an emergency via a longitudinal incision because of hemorrhage after her thyroid surgery. [facility]LY [facility] Medical History (Updated 02/02/23 @ 13:43 by Joseph De La O MD) Hyperlipidemia Thyroid disease Umbilical hernia Surgical History Hx of section Social History Alcohol intake: current Alcohol intake frequency: holidays/special occasions only Review of Systems Const Denies chills and Denies fever(s) Card Denies chest pain, Denies dyspnea and Denies dyspnea on exertion Resp Denies cough, Denies dyspnea and Denies dyspnea on exertion GI Denies hematochezia and Denies change in bowel habits Denies hematuria Musc Denies back pain and Denies limited range of motion Neuro Denies focal weakness and Denies convulsions Psych Denies depression and Denies mood swings Physical Exam Vital Signs: Last Vital Signs Pulse 60 02/02/23 13:10 BP 138/74 02/02/23 13:10 BMI result Body Mass Index 29.9 Const General: comfortable and no acute distress Orientation/consciousness: patient oriented x3 Neck Neck: Yes no lymphadenopathy Resp Auscultation: clear to auscultation bilaterally Cardio Rhythm: regular rhythm GI Other: Umbilical hernia, about 1.5 cm defect, nontender at this time Palpation (GI): Soft to palpation, nontender and no guarding Neuro General: patient oriented x3 Assessment & Plan Assessment & Plan (1) Umbilical hernia: Code(s): K42.9 - Umbilical hernia without obstruction or gangrene Plan: She has an umbilical hernia as described above. She had a CAT scan done last month for an ER visit for right lower quadrant pain. I have reviewed this and this does show defect and the umbilicus consistent with a fat containing hernia. In view of symptoms, she wants to proceed with repair. I explained the technique of repair of the umbilical hernia with possible mesh. I discussed the risks including but not limited to bleeding, infections, bowel injury, recurrence, postop pain, as well as the benefits and alternatives. She understands and wants to proceed. She has been on levothyroxine after she had thyroidectomy for Graves disease about 30 years ago. Coding Level of Care Code New Pt Level 3 (09915) Diagnoses Umbilical hernia K42.9
== END 2023-02-02 13:42 | disposition home or self-care (01) ==
PROVIDERS: PCP Student in an Organized Health Care Education/Training Program; Referring Provider Student in an Organized Health Care Education/Training Program; Visit Provider Surgery
DX: K42.9 Umbilical hernia without obstruction or gangrene (principal)
CPT/HCPCS: 99203

== ENCOUNTER → 2023-02-02 12:54 | Outpatient (BNVA) | payer MEDICAID, SELFPAY | PROVIDERS: PCP Student in an Organized Health Care Education/Training Program; Referring Provider Student in an Organized Health Care Education/Training Program; Visit Provider Surgery | DX: K42.9 Umbilical hernia without obstruction or gangrene (principal) | CPT/HCPCS: 99202 ==

== ENCOUNTER 2023-03-04 08:27 | Day surgery (SDC) | payer MEDICAID, SELFPAY ==
[2023-03-02 14:23] VITALS: BMI 29.9
[2023-03-04] VITALS (14 sets, daily range): BP systolic 119–139; BP diastolic 52–79; PULSE 50–61; RESP 16–20; TEMP 36.2–36.3; O2SAT 94–100
--- NOTE | 2023-03-04 08:36 | MHC.SHP ---
Pre-Procedural Eval Section A Date of Service: 03/04/23 The patient is an INPATIENT: No Changes since office visit: No Cold of Flu in the past 2 weeks, No New Medical Problems, No Changes in Medication and No Patient answered all questions The History & Physical has been completed within 30 days and I have reviewed it.: Yes Section B Chief Complaint: Umbilical hernia without obstruction or gangrene Allergies: Allergies Allergy/AdvReac Type Severity Reaction Status Date / Time acetaminophen [From Percocet] Allergy Mild ITCHING Verified 02/02/23 13:15 oxycodone [From Percocet] Allergy Mild ITCHING Verified 02/02/23 13:15 Plan I have reviewed the history and physical and performed a pertinent physical examination on my patient. No changes have occurred unless specified. Time Spent With Patient Time: Total time managing care of this patient today ____ minutes.
--- NOTE | 2023-03-04 08:40 | HO.ANESPROP2 ---
[facility] Active Problems Active Problems: All Active Problems (Updated 02/02/23 @ 13:43 by Joseph De La O MD) Umbilical hernia (Acute) Thyroid disease (Acute) Past Medical History Medical History (Updated 02/02/23 @ 13:43 by Joseph De La O MD) Umbilical hernia Thyroid disease Hyperlipidemia Family History Family history of problems with anesthesia: No Surgical History Surgical History Hx of section History of Problems with Anesthesia: No Social History Social History Alcohol intake: current Alcohol intake frequency: holidays/special occasions only Advance Directives: No Advance Directives Information Provided: Yes Meds Allergies Allergy/AdvReac Type Severity Reaction Status Date / Time acetaminophen [From Percocet] Allergy Mild ITCHING Verified 02/02/23 13:15 oxycodone [From Percocet] Allergy Mild ITCHING Verified 02/02/23 13:15 Active Medications: Current Medications Cefazolin Sodium/Dextrose (Ancef) 2 gm in 50 mls @ 100 mls/hr IV PREOP ONE Stop: 03/04/23 08:59 Home Medications Medication Instructions Recorded Confirmed Last Taken Type atorvastatin 80 mg tablet 80 mg PO BEDTIME 02/02/23 02/02/23 Unknown History levothyroxine 100 mcg tablet 100 mcg PO DAILY 02/02/23 02/02/23 Unknown History loratadine 10 mg tablet 10 mg PO QAM 02/02/23 02/02/23 Unknown History naproxen 500 mg tablet 500 mg PO BID 02/02/23 02/02/23 Unknown History Exam Exam Date and Time: March 04, 2023 0840 Height,Weight and Vital Signs: Height 5 ft 6 in Weight 83.915 kg Airway Mallampati Class: III TM Dist: >3cm Neck ROM: Full Assessment and Plan Assessment Anesthesia Assessment: Anesthesia Plan Discussed and Chart Reviewed Final Anesthetic Review Family History of Problems with Anesthesia: No History of Problems with Anesthesia: No NPO: Yes ASA Class: II Final Preanesthetic Review: No Changes in Pt Med Stat, Meds/Allgs Chart Reviewed, Consent Obtained/Reviewed and Anes Risks/Benef Reviewed Patient Risk: Intermediate Procedure Risk: Low Anesthetic Plan Anesthetic Plan: GA Disposition: Standard PACU
--- NOTE | 2023-03-04 08:42 | HO.ANESPROP2 ---
[facility], [facility] Active Problems Active Problems: All Active Problems Umbilical hernia (Acute) Thyroid disease (Acute) Past Medical History Medical History (Updated 02/02/23 @ 13:43 by Joseph De La O MD) Umbilical hernia Thyroid disease Hyperlipidemia Family History Family history of problems with anesthesia: No Surgical History Surgical History Hx of section History of Problems with Anesthesia: No Social History Social History Alcohol intake: current Alcohol intake frequency: holidays/special occasions only Advance Directives: No Advance Directives Information Provided: Yes Meds Allergies Allergy/AdvReac Type Severity Reaction Status Date / Time acetaminophen [From Percocet] Allergy Mild ITCHING Verified 02/02/23 13:15 oxycodone [From Percocet] Allergy Mild ITCHING Verified 02/02/23 13:15 Active Medications: Current Medications Cefazolin Sodium/Dextrose (Ancef) 2 gm in 50 mls @ 100 mls/hr IV PREOP ONE Stop: 03/04/23 08:59 Home Medications Medication Instructions Recorded Confirmed Last Taken Type atorvastatin 80 mg tablet 80 mg PO BEDTIME 02/02/23 02/02/23 Unknown History levothyroxine 100 mcg tablet 100 mcg PO DAILY 02/02/23 02/02/23 Unknown History loratadine 10 mg tablet 10 mg PO QAM 02/02/23 02/02/23 Unknown History naproxen 500 mg tablet 500 mg PO BID 02/02/23 02/02/23 Unknown History Exam Exam Date and Time: March 04, 2023 0842 Height,Weight and Vital Signs: Height 5 ft 6 in Weight 83.915 kg Airway Mallampati Class: III TM Dist: >3cm Neck ROM: Full Assessment and Plan Assessment Anesthesia Assessment: Anesthesia Plan Discussed and Chart Reviewed Final Anesthetic Review Family History of Problems with Anesthesia: No History of Problems with Anesthesia: No NPO: Yes ASA Class: III Final Preanesthetic Review: No Changes in Pt Med Stat, Meds/Allgs Chart Reviewed, Consent Obtained/Reviewed and Anes Risks/Benef Reviewed Patient Risk: Intermediate Procedure Risk: Low Anesthetic Plan Anesthetic Plan: GA Disposition: Standard PACU
--- NOTE | 2023-03-04 09:46 | W.PM.OPN ---
Operative Note Operative Note Date of Service: 03/04/23 Narrative: Preop diagnosis: Umbilical hernia Postop diagnosis: Infraumbilical hernia, about 1.3 cm in diameter, with incarcerated omentum Procedure: Repair of infraumbilical hernia with Ventralex mesh, with partial omentectomy Surgeon: Joseph De La O MD service assistant: JADA Mosley The patient is a 52-year-old female with note of an infraumbilical hernia with pain and discomfort. This was also seen on a recent CT scan. This appeared to have likely incarcerated omentum. She understood the technique of the planned procedure and was aware of the risks, benefits, and alternatives. She was brought to the operating room and placed supine under general anesthesia via laryngeal mask airway. The abdomen was prepped and draped in the usual sterile fashion. A surgical time-out was done. The patient received cefazolin 2 g IV preoperatively . The hernias palpable just below the umbilicus. Infiltrated this area with lidocaine 1%. I made the incision dong H digitally on the skin with a blade 15. This was carried down with electrocautery through the full-thickness of the skin exam days fat until visualized fat containing hernia. I sharply dissected this hernia off of the rest of the subcutaneous layer down to the fascial defect. We divided adhesions tethering this incarcerated omentum to the fascial edge. We could not reduce the hernia contents because of the large amount of incarcerated omentum with a narrow neck. I therefore did partial omentectomy by serially ligating and dividing this incarcerated omentum. This resected omentum was sent as a specimen. I was then therefore able to reduce the hernia contents completely through the defect. The fascial edges were free. The fascial defect was about 1.3 cm I positioned a small-sized Ventralex mesh to cover this defect. I secured the Prolene straps of the mesh to the fascial edge on both sides with Prolene 2 sutures. I trimmed the Prolene straps. I closed the defect with a [id number] and 1 stitch using the fascia. I irrigated and reapposed the subcutaneous layer windows server administrator 3-0 sutures. Skin closure was achieved with pulse of 4-0 urine is stitch. The area was infiltrated with Marcaine 0.5% for postop analgesia. Dressings were applied. The procedure was completed. The patient tolerated treated well. There were no immediate complications. Initial and final counts of sponges and instruments were correct. Estimated blood loss about cc. The patient was extubated without difficulty and transferred to the recovery room with stable vital signs.
== END 2023-03-04 13:35 | disposition home or self-care (01) ==
PROVIDERS: PCP Student in an Organized Health Care Education/Training Program; Visit Provider Surgery
PROC: (CPT 49592; principal; 2023-03-04 08:50)
DX: K42.0 Umbilical hernia with obstruction, without gangrene (principal); K66.0 Peritoneal adhesions (postprocedural) (postinfection); E78.5 Hyperlipidemia, unspecified; E07.9 Disorder of thyroid, unspecified; Z79.1 Long term (current) use of non-steroidal anti-inflammatories (NSAID); Z79.899 Other long term (current) drug therapy; Z88.8 Allergy status to other drugs, medicaments and biological substances
CPT/HCPCS: 49592; 88304; C1781; J0690; J1100; J1170; J1200; J2405

== ENCOUNTER → 2023-03-04 08:27 | Outpatient (BNV) | payer MEDICAID, SELFPAY | PROVIDERS: PCP Student in an Organized Health Care Education/Training Program; Visit Provider Surgery | DX: K42.0 Umbilical hernia with obstruction, without gangrene (principal) | CPT/HCPCS: 49592 ==

== ENCOUNTER 2023-03-23 13:39 | Outpatient (AMB) | payer MEDICAID, SELFPAY ==
--- NOTE | 2023-03-23 13:42 | MHC.OFFVIS ---
Intake Vital Signs 03/23/23 13:49 BP 136/83 Blood Pressure Location Rt brachial Position Sitting Pulse 73 Intake Visit Reasons: S/P umbilical hernia Intake Note: This patient presents for a post-op assessment status post umbilical hernia repair. Patient c/o; reports no complaints at this time pertaining to surgery. [employer] Attendant Required: No Accompanied by: Self / Same As Patient Allergies acetaminophen [From Percocet] Allergy (Mild, Verified 03/23/23 13:50) ITCHING oxycodone [From Percocet] Allergy (Mild, Verified 03/23/23 13:50) ITCHING HPI S/P umbilical hernia HPI Details She had undergone repair of an infraumbilical hernia 03/04/2023. This was done with mesh. She tolerated procedure well. She currently denies significant complaints. [facility] Medical History Umbilical hernia Thyroid disease Hyperlipidemia Surgical History History of hernia surgery (~03/04/23) Hx of section Social History Alcohol intake: current Alcohol intake frequency: does not drink Patient Tobacco Use Status: Current everyday Tobacco user Tobacco use type: Cigarette Cigarettes Per Day: 10 Physical Exam Vital Signs: Last Vital Signs Pulse 73 03/23/23 13:49 BP 136/83 03/23/23 13:49 Const General: comfortable and no acute distress GI Other: Incision clean and dry, repair site intact, no evidence of infection Palpation (GI): Soft to palpation, not firm and no guarding Assessment & Plan Assessment & Plan (1) Umbilical hernia: Code(s): K42.9 - Umbilical hernia without obstruction or gangrene Plan: Status post repair with mesh. She is doing well. Her incision is well healed. The repair site is intact. She was advised to avoid any lifting more than 20 lb for at least 3 more weeks. Coding Level of Care Code Global (66635) Diagnoses Umbilical hernia K42.9
[2023-03-23 13:49] VITALS: BP 136/83; PULSE 73
== END 2023-03-23 13:54 | disposition home or self-care (01) ==
PROVIDERS: PCP Student in an Organized Health Care Education/Training Program; Visit Provider Surgery
DX: K42.9 Umbilical hernia without obstruction or gangrene (principal)
CPT/HCPCS: 99212

== ENCOUNTER → 2023-03-23 13:39 | Outpatient (BNVA) | payer MEDICAID, SELFPAY | PROVIDERS: PCP Student in an Organized Health Care Education/Training Program; Visit Provider Surgery | DX: K42.9 Umbilical hernia without obstruction or gangrene (principal) | CPT/HCPCS: 99212 ==

== ENCOUNTER 2024-02-09 11:55 | Outpatient (REF) | payer MEDICAID, SELFPAY ==
[2024-02-09 14:40] LABS: Alanine Aminotransferase 16 U/L (0-31); Albumin Level 4.3 g/dL (3.5-5.0); Alkaline Phosphatase 85 U/L (39-117); Anion Gap 11 (12-20); Aspartate Amino Transferase 18 U/L (5-31); Bilirubin Direct 0.1 mg/dL (0.0-0.5); Bilirubin Total 0.4 mg/dL (0.0-1.0); Blood Urea Nitrogen 16 mg/dL (9-16); Calcium 9.9 mg/dL (8.4-10.2); Carbon Dioxide 28 mmol/L (22-29); Chloride 105 mmol/L (96-108); Cholesterol 296 mg/dL (<200); Estimated Glomerular Filt Rate 47; Glucose Random 109 mg/dL (60-115); HDL Cholesterol 48 mg/dL (>40); LDL Cholesterol Calculated 218 mg/dL (<100); Potassium 4.2 mmol/L (3.3-5.1); Sodium 140 mmol/L (135-145); Total Protein 7.7 g/dL (6.5-8.0); Triglycerides 153 mg/dL (<150)
[2024-02-09 15:01] LABS: TSH reflex Free T4 0.75 uIU/mL (0.32-4.0)
== END 2024-02-09 11:56 | disposition home or self-care (01) ==
LOC: HO.CHCLDS 11:55
PROVIDERS: Visit Provider Student in an Organized Health Care Education/Training Program
DX: I10 Essential (primary) hypertension (principal); E03.9 Hypothyroidism, unspecified
CPT/HCPCS: 36415; 80048; 80061; 80076; 84443

== ENCOUNTER 2025-02-25 10:06 | Outpatient (REF) | payer MEDICAID, SELFPAY ==
--- OUTSIDE RECORDS SUMMARY | 2025-02-25 11:17 | XMS_ITS | Clinical Summary ---
Author Organization [employer] Address [address] [place] [address] [address] [place] [address] Care Team Providers Care Assurance Sourcing Manager Name Role Phone Kera Bowens MD Primary Care Provider Allergies Active Allergy Reactions Criticality Noted Date Comments Acetaminophen Itching Low 01/20/2023 Oxycodone Itching Low 01/20/2023 Medications Acetaminophen 500 MG capsule Take 1,000 mg by mouth every 6 (six) hours if needed. Active baclofen (Lioresal) 10 MG tablet Take 5 mg by mouth. 12/12/19 22 Active riTUXimab (RITUXAN IV)Indications: optic neuritis IV infusion every 6 months Active atorvastatin (Lipitor) 80 MG tablet Take 1 tablet (80 mg) by mouth Once per day. 30 tablet 11 02/09/20 24 Active nicotine (Nicoderm, Step 2) 14 MG/24HR patch Place 1 patch on the skin 1 (one) time each day at the same time. 42 patch 02/09/20 24 Active nicotine (Nicoderm CQ) 7 MG/24HR patch Place 1 patch on the skin 1 (one) time each day at the same time. 30 patch 3 02/09/20 24 Active nicotine polacrilex (Commit) 2 MG lozengeIndicati ons:Smoking 1/2 pack a day or less Dissolve 1 lozenge (2 mg) in the mouth if needed for smoking cessation. 100 lozenge 06/20/19 25 Active naproxen (Naprosyn) 500 MG tabletIndicatio ns:Right upper quadrant pain TAKE 1 TABLET BY MOUTH IN THE MORNING AND AT BEDTIME NEEDED FOR MODERATE PAIN 30 tablet 06/25/19 25 Active loratadine (Claritin) 10 MG tablet TAKE 1 TABLET BY MOUTH EVERY DAY 30 tablet 11 06/25/19 25 Active levothyroxine (Synthroid, Levoxyl) 100 MCG tablet TAKE 1 TABLET(100 MCG) BY MOUTH BEFORE BREAKFAST 90 tablet 3 12/18/19 25 Active albuterol 108 (90 Base) MCG/ACT inhalerIndicati ons:Acute cough Inhale 2 puffs every 4 (four) hours if needed for wheezing. 18 g 02/14/20 25 026 Active albuterol 108 (90 Base) MCG/ACT inhalerIndicati ons:Acute cough Inhale 2 puffs every 4 (four) hours if needed for wheezing. 18 g 02/14/20 25 026 Active Mometasone Furoate (Asmanex HFA) 50 MCG/ACT aerosolIndicati ons:Moderate persistent asthma with acute exacerbation Inhale 2 Act (100 mcg) 2 times daily. 13 g 5 02/20/20 25 Active cholecalciferol (Vitamin D3) 25 MCG (1000 UT) tablet Take 1 tablet (25 mcg) by mouth Once per day. 30 tablet 11 02/09/20 24 025 nystatin (Mycostatin) 822845 UNIT/GM powder Apply topically 2 times daily. 60 g 3 02/09/20 24 025 albuterol 108 (90 Base) MCG/ACT inhalerIndicati ons:Acute cough Inhale 2 puffs every 4 (four) hours if needed for wheezing. 18 g 06/20/19 25 025 Discontinued(R eorder (will not trigger notification to Pharmacy)) guaiFENesin (Mucinex) 600 MG 12 hr tabletIndicatio ns:Acute cough Take 2 tablets (1,200 mg) by mouth 2 times daily. Do not crush, chew, or split. 120 tablet 11 06/20/19 25 025 Discontinued predniSONE (Deltasone) 20 MG tablet Take 2 tablets (40 mg) by mouth Once per day for 5 days. 10 tablet 02/14/20 25 025 fluticasone (Flovent) 44 MCG/ACT inhaler Inhale 2 puffs in the morning and at bedtime. Rinse mouth with water after use to reduce aftertaste and incidence of candidiasis. Do not swallow. 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 Assessment & Plan (08/19/2022 10:10 AM EDT): Upper back rash, she had shingles before, no blistering, no discharge, no sign of bacterial infection, will start on valacyclovir x 7 days Joint pain 04/03/2014 Neuromyelitis optica (CMS/HCC) 01/18/2013 Benign hypertension 11/13/2012 Acquired hypothyroidism 08/17/2011 Backache 08/17/2011 Pure hypercholesterolemia 08/17/2011 Tobacco dependence syndrome 08/17/2011 Encounters Date Type Department Care Team Description 02/25/2025 Telephone [facility] [address] [place] [address] Kera Bowens MD 02/15/2025 10:00 AM EDT Office Visit [facility] [address] [place] [address] Roxane Mata MD Moderate persistent asthma with acute exacerbation (Primary Dx); Benign hypertension; Pure hypercholesterolemia 02/15/2025 Telephone [facility] [address] [place] [address] Kera Bowens MD Prior Authorization 02/15/2025 Travel 02/15/2025 Telephone [facility] [address] [place] [address] Roxane Mata MD Chart Prep 02/13/2025 8:30 AM EDT Telemedicine [facility] [address] [place] [address] Teja Petit MD Acute cough 02/13/2025 Travel 02/12/2025 Refill [facility] [address] [place] [address] Heri Angelo MD Acute cough 02/12/2025 Refill [facility] [address] [place] [address] Roxane Mata MD Acute cough 12/25/2024 Telephone [facility] [address] [place] [address] Roxane Mata MD Cologuard Kit 12/15/2024 Refill [facility] [address] [place] [address] Roxane Mata MD from Last 3 Months Immunizations Immunization Administration Dates Next Due Influenza injectable quadriv alent IIV4 with preservative 03/22/2019 Influenza, IIV3, injectable 03/13/2010 Influenza, seasonal, injecta ble, preservative free 02/09/2024,03/02/2017,01/27/2015 Tdap 07/27/2019,03/22/2019 Social History Tobacco Use Types Packs/Day Years Used Date Smoking Tobacco: Some Days Cigarettes 0.3 35 Passive Smoke Exposure: Never Smokeless Tobacco: Never Tobacco Cessation:Ready to Q uit: Not Asked; Counseling Given: Not Answered Alcohol Use Standard Drinks/Week Comments Never 0 (1 standard drink = 0.6 oz pur e alcohol) Depression Answer Date Recorded Patient Health Questionnaire-9 Score 7 08/19/2022 Housing Stability Answer Date Recorded What is your housing situation today? I have erica becki 05/25/[address] you li ve. Do you have problems with any of the following? None of the above 05/25/2024 Food Insecurity Answer Date Recorded Within the past 12 months, y ou worried that your food would run out before you got money to buy more: Sometimes True 2023 Within the past 12 months,th e food you bought just didn't last and you didn't have enough money to get more: Sometimes True 05/25/2024 Transportation Answer Date Recorded In the past 12 months, has l ack of transportation kept you from medical appts, meetings, work or from getting things needed for daily living? Yes, it has kept me from medical appointments or getting medications. 05/25/2024 Utilities Answer Date Recorded In the past 12 months, has t he electric, gas, oil or water company threatened to shut off services in your home? No 05/25/2024 Depression Answer Date Recorded Patient Health Questionnaire-2 Score 2 08/19/2022 Internet Access Answer Date Recorded Internet Access Q1 Yes 05/25/2024 Internet Access Q2 Not on file 05/25/2024 Comments Unknown Sex and Gender Information Value Date Recorded Sex Assigned at Female 03/29/2022 10:16 AM EDT Legal Sex Female 10:16 AM EDT Gender Identity Female 03/29/2022 10:16 AM EDT Sexual Orientation Choose not to disclose 2021 10:16 AM EDT Last Filed Vital Signs Vital Sign Reading Time Taken Comments Blood Pressure 121/69 02/15/2025 9:55 AM EDT Pulse 62 02/15/2025 9:55 AM EDT Temperature 36.3 C (97.3 F) 02/15/2025 9:55 AM EDT Respiratory Rate 18 02/15/2025 9:55 AM EDT Oxygen Saturation 98% 02/15/2025 9:55 AM EDT Inhaled Oxygen Concentration - - Weight 87.1 kg (192 lb) 02/15/2025 9:55 AM EDT Height 165.7 cm (5' 5.25 ) 02/15/2025 9:55 AM ED T Body Mass Index 31.71 02/15/2025 9:55 AM EDT Plan of Treatment Health Maintenance Due Date Last Done Comments CT Colonography 1969 Colonoscopy 1969 Colorectal Cancer Screening 1969 FIT DNA/Cologuard 1969 FIT 1969 FOBT 1969 HIV Screening 1969 Sigmoidoscopy 1969 Hepatitis C Screening 1987 Hepatitis B Vaccines (1 of 3 - 19+ 3-dose series) 1988 Pneumococcal Vaccine: 50+ Years (1 of 2 - PCV) 1988 Pap Smear 1990 Cervical Cancer Screening 1999 HPV/Cotest 1999 Zoster Vaccines (1 of 2) 2019 Mammogram 10/26/2019 10/25/2017 Depression Screening 08/20/2023 08/19/2022, 08/20/19 COVID-19 Vaccine (3 - season) 2025 10/30/2020, 10/01/2020 Influenza Vaccine (#1) 2025 , 03/22/2019, 03/02/2017, Additional history exists SDOH Screening 05/25/2025 05/25/2024 Alcohol/Substance Use Screening 02/15/2026 02/15/2025 Disability Screening 02/15/2026 02/15/2025 Tobacco Screening 02/15/2026 02/15/2025 Lipid Panel 02/08/2029 02/09/2024, 08/0 08/2021, 08/15/2020 DTaP/Tdap/Td Vaccines (3 - Td or Tdap) 07/27/2029 07/27/2019, 03/22/2019 RSV Patients and Patients Aged 60 years or older (1 - 1-dose 75+ series) 2044 HIB Vaccines Aged Out No longer eligi ble based on patient's age to complete this topic HPV Vaccines Aged Out No longer eligi ble based on patient's age to complete this topic Hepatitis A Vaccines Aged Out No long er eligible based on patient's age to complete this topic IPV Vaccines Aged Out No longer eligi ble based on patient's age to complete this topic Meningococcal B Vaccine Aged Out No l onger eligible based on patient's age to complete this topic Meningococcal Vaccine Aged Out No angel errol eligible based on patient's age to complete this topic RSV under 20 months Aged Out No longe r eligible based on patient's age to complete this topic Rotavirus Vaccines Aged Out No longer eligible based on patient's age to complete this topic Procedures Procedure Name Priority Date/Time Associated Diagnosis Comments LIPID PANEL, STANDARD Routine 02/09/2024 11:57 AM EDT Benign hypertension BI MAMMOGRAM SCREENING BILATERAL Routine 10/25/2017 11:20 AM EDT from Last 3 Months or Most Recently Relevant to Health Maintenance Results * (ABNORMAL) Lipid Panel, Standard (02/09/2024 11:57 AM EDT) Triglycerides 153(H) <150 mg/dL [facility] Comment:Desirable Triglyceri de: less than 150 mg/dLBorderline High Triglyceride 150-199 mg/dLHigh Triglyceride: 200-499 mg/dLVery High Triglyceride: greater than or equal to 5OO mg/dL Cholesterol 296(H) <200 mg/dL [facility] Comment:Desirable Cholestero l: less than 200 mg/dLBorderline High Cholesterol: 200-239 mg/dLHigh Cholesterol: greater than 239 mg/dL LDL Cholesterol Calculated 218(H) <100 mg/dL [facility] Comment:Desirable LDL: less than 100 mg/dLNear Optimal/Above Optimal LDL: 110- 129 mg/dLBorderline High LDL: 130-159 mg/dLHigh LDL: 160-189 mg/dLVery High LDL: greater than or equal to 190 mg/dL HDL Cholesterol 48 >40 mg/dL [facility] Comment:Desirable HDL: great er than 40 mg/dL Note: This HDL assay may give artificially low results in patients with liver disease. Blood Venous blood specimen / Unknown 02/09/2024 11:57 AM EDT 02/09/2024 2:05 PM EDT us Roxane Mata MD LAB BLOOD ORDERABLES Final Resul t [facility] [address] [place] [phone] * 3D DIGITAL MATTHEW SCR MAMMO 1 (10/25/2017 11:20 AM EDT) Anatomical Region Laterality Modality Breast Bilateral Mammography 10/25/2017 11:2 0 AM EDT Narrative 10/25/2017 11:21 AM EDT Refer to the Notes tab for result details [facility] Procedure: 3D DIGITAL MATTHEW SCR MAMMO 1 Procedure Note Provider, MD Abhi - 08/21/2022 Refer to the Notes tab for result details [facility] Procedure: 3D DIGITAL MATTHEW SCR MAMMO 1 Roxane Mata MD IMG BI PROCEDURES Final Result from Last 3 Months or Most Recently Relevant to Health Maintenance Insurance [address] [place], [place] [address] C[employer] Care Teams Assurance Sourcing Manager Relationship Specialty Start Date End Date Kera Bowens MD [address] [place] [id number] PCP - General Family Medicine 02/15/25
--- OUTSIDE RECORDS SUMMARY | 2025-02-25 11:17 | XMS_ITS | Encounter Summary ---
Author Organization [facility] Address [address] [place] [phone] Phone Care Team Providers Care Reinforced Ironworker Name Role Phone Christian Meza DO Unavailable [phone] Roxane Mata MD Unavailable [phone] Roxane Mata MD Primary Care Provider [phone] Encounter Details Date Type Department Care Team (Late st Contact Info) Description 04/07/2018 Procedure Pass OR Admitting Dept - Virtual Department [address] [place] [address] Social History Tobacco Use Types Packs/Day Years Used Date Smoking Tobacco: Every Day Cigarettes 0.3 25 Smokeless Tobacco: Never Alcohol Use Standard Drinks/Week Comments No 0 (1 standard drink = 0.6 oz pur e alcohol) Comments Unknown Sex and Gender Information Value Date Recorded Sex Assigned at Not on file Legal Sex Female 10:32 PM EDT Gender Identity Not on file Sexual Orientation Not on file documented as of this encounter Plan of Treatment Not on file documented as of this encounter Visit Diagnoses Not on filedocumented in this encounter Care Teams Reinforced Ironworker Relationship Specialty Start Date End Date Roxane Mata MD [address] [place] [id number] PCP - General 06/02/17 Christian Meza DO [address] [place] [address] Orthopedics & Sports Medicine, [facility] [place] [address] Historical LMR Provider 03/17/17 06/06/21 Roxane Mata MD [address] [place] [id number] Historical LMR Provider 03/17/17 2 documented as of this encounter Additional Source Comments The information contained in this document represents components of the legal health record. It is not the complete legal health record.[facility]
--- OUTSIDE RECORDS SUMMARY | 2025-02-25 11:17 | XMS_ITS | Clinical Summary ---
Author Organization [facility] Address [address] [place], [place] [id number] Phone Care Team Providers Care Cotton Converter Name Role Phone Roxane Mata MD Primary Care Provider [phone] Allergies No known active allergies Medications ADULT LOW DOSE ASPIRIN ORAL Active atorvastatin (LIPITOR) 80 MG tablet 1 12/05/2017 Active gabapentin (NEURONTIN) 100 MG capsule Take 300 mg by mouth 3 (three) times a day. 0 12/04/2017 Active hydrocortisone 2.5 % cream APPLY TO AFFECTED AREA ONCE DAILY 0 12/14/2017 Active levothyroxine (SYNTHROID, LEVOTHROID) 100 MCG tablet 0 09/27/2017 Active mycophenolate mofetil (CELLCEPT) 500 mg tablet Take 500 mg by mouth 2 (two) times a day. 0 12/05/2017 Active naproxen (NAPROSYN) 500 MG tablet take 1 tablet by mouth twice a day if needed 0 12/16/2017 Active nortriptyline (PAMELOR) 10 MG capsule 0 12/04/2017 Active methocarbamol (ROBAXIN) 500 MG tablet Take 500 mg by mouth 2 (two) times a day. 0 02/28/2018 Active acetaminophen (TYLENOL) 500 mg capsule Take 1,000 mg by mouth every 6 (six) hours as needed for fever. Active acetaminophen (TYLENOL) 325 mg tablet Take 2 tablets (650 mg total) by mouth every 4 (four) hours as needed for mild pain. 04/07/2018 Active oxyCODONE 5 MG immediate release tablet Take 1-2 tablets (5-10 mg total) by mouth every 4 (four) hours as needed for moderate pain. Pt. may request partial fill 40 tablet 04/07/2018 Active aspirin 325 MG tablet Take 1 tablet (325 mg total) by mouth daily. 04/07/2018 Active Active Problems Problem Noted Date Diagnosed Date Right hip pain 02/23/2018 Family History Medical History Relation Comments No Known Problems Brother No Known Problems Father No Known Problems Maternal Aunt No Known Problems Maternal Grandfather No Known Problems Maternal Grandmother No Known Problems Maternal Uncle No Known Problems Mother No Known Problems Paternal Aunt No Known Problems Paternal Grandfather No Known Problems Paternal Grandmother No Known Problems Paternal Uncle No Known Problems Sister Cancer Unspecified Diabetes Unspecified Infl. arthritis Unspecified Clotting disorder Neg Hx Collagen disease Neg Hx Depression Neg Hx Dislocations Neg Hx Gout Neg Hx Osteoporosis Neg Hx Scoliosis Neg Hx Relation Status Comments Brother Father Maternal Aunt Maternal Grandfather Maternal Grandmother Maternal Uncle Mother Paternal Aunt Paternal Grandfather Paternal Grandmother Paternal Uncle Sister Unspecified Social History Tobacco Use Types Packs/Day Years Used Date Smoking Tobacco: Every Day Cigarettes 0.3 25 Smokeless Tobacco: Never Alcohol Use Standard Drinks/Week Comments No 0 (1 standard drink = 0.6 oz pur e alcohol) Education Answer Date Recorded Are you interested in more education? Not on shavon e 09/24/2022 Are you concerned about learning? Not on file 09/24/2022 No 09/24/2022 No 09/24/2022 Digital Access Answer Date Recorded No 10/25/2022 No 10/25/2022 Reliable internet access at home? Not on file 10/25/2022 Device with a working camera? Not on file Comments Unknown Sex and Gender Information Value Date Recorded Sex Assigned at Not on file Legal Sex Female 10:32 PM EDT Gender Identity Not on file Sexual Orientation Not on file Last Filed Vital Signs Vital Sign Reading Time Taken Comments Blood Pressure 112/74 04/07/2018 12:27 PM EST Pulse 74 04/07/2018 10:45 AM EST Temperature 36.1 C (97 F) 04/07/2018 11:00 AM EST Respiratory Rate 18 04/07/2018 10:45 AM EST Oxygen Saturation 97% 04/07/2018 12:27 PM EST Inhaled Oxygen Concentration - - Weight 77.6 kg (171 lb 1.2 oz) 05/17/2018 2:33 P M EST Height 167.6 cm (5' 5.98 ) 05/17/2018 2:33 PM ES T Body Mass Index 27.63 05/17/2018 2:33 PM EST Plan of Treatment Health Maintenance Due Date Last Done Comments LIPID PANEL 1969 TSH LEVEL 1969 DEPRESSION SCREENING 1981 SMOKING Hx and SMOKELESS TOBACCO SCREENING 1982 HEPATITIS C SCREENING 1987 HIV ONE-TIME SCREENING (18-6 5 YEARS) 1987 PNEUMOCOCCAL VACCINES (50+ years) (1 of 2 - PCV) 1988 ZOSTER VACCINES (1 of 2) 1988 PAP SMEAR 1990 MAMMOGRAM 2009 COLOGUARD 2014 COLONOSCOPY 2014 COLORECTAL CANCER SCREENING 2014 FIT TEST 2014 FOBT 2014 SIGMOIDOSCOPY 2014 VIRTUAL COLONOSCOPY 2014 COVID-19 VACCINE (2 - Modern a risk series) 10/29/2020 10/01/2020 INFLUENZA VACCINE (#1) 2024 9, 03/02/2017, 01/27/2015 Adult Td,Tdap Booster 03/22/2029 03/22/2019 HEPATITIS A VACCINES Aged Out No long er eligible based on patient's age to complete this topic HIB VACCINES Aged Out No longer eligi ble based on patient's age to complete this topic MENINGOCOCCAL VACCINES (ACWY) Aged Out No longer eligible based on patient's age to complete this topic MENINGOCOCCAL VACCINES (B) Aged Out N o longer eligible based on patient's age to complete this topic Medical Devices Not on file Insurance [facility] C3 ACO C3 ACO C3 ACO C3 ACO C3 ACO C3 ACO C3 ACO C3 ACO [place] [place] [id number] [place] [address] [place] [phone] Advance Directives For more information, please contact: [phone] (9AM - 5PM [facility], Tuesday-Tuesday) * Full Code (Presumed) (Latest Code Status on File) Date Activated Date Inactivated Comments 04/07/2018 7:49 AM 04/07/2018 4:26 PM Care Teams Cotton Converter Relationship Specialty Start Date End Date Roxane Mata MD [address] [place] [id number] PCP - General 06/02/17 Additional Source Comments The information contained in this document represents components of the legal health record. It is not the complete legal health record.[facility]
--- OUTSIDE RECORDS SUMMARY | 2025-02-25 11:17 | XMS_ITS | Encounter Summary ---
Author Organization [employer] Address [address] [facility] 7t [place] [address] Care Team Providers Care Launching Pad Mechanic Name Role Phone Roxane Mata MD Primary Care Provider [phone] Kera Bowens MD Primary Care Provider [phone] Reason for Visit * Reason Comments Med Refill Encounter Details Date Type Department Care Team ([facility] Contact Info) Description 12/15/2023 Refill [facility] CHC MED & PEDS 505 [place], [place] [phone] Roxane Mata MD 505 [place] [address] Social History Tobacco Use Types Packs/Day Years Used Date Smoking Tobacco: Some Days Cigarettes 0.3 35 Passive Smoke Exposure: Never Smokeless Tobacco: Never Alcohol Use Standard Drinks/Week Comments Never 0 (1 standard drink = 0.6 oz pur e alcohol) Depression Answer Date Recorded Patient Health Questionnaire-9 Score 7 08/19/2022 Housing Stability Answer Date Recorded What is your housing situation today? I have erica connell 03/16/[address] you li ve. Do you have problems with any of the following? None of the above 03/16/2023 Food Insecurity Answer Date Recorded Within the past 12 months, y ou worried that your food would run out before you got money to buy more: Never True 03/16/2023 Within the past 12 months,th e food you bought just didn't last and you didn't have enough money to get more: Never True Transportation Answer Date Recorded In the past 12 months, has l ack of transportation kept you from medical appts, meetings, work or from getting things needed for daily living? No 03/16/2023 Utilities Answer Date Recorded In the past 12 months, has t he electric, gas, oil or water company threatened to shut off services in your home? No 03/16/2023 Depression Answer Date Recorded Patient Health Questionnaire-2 Score 2 08/19/2022 Comments Unknown Sex and Gender Information Value Date Recorded Sex Assigned at Female 03/29/2022 10:16 AM EDT Legal Sex Female 10:16 AM EDT Gender Identity Female 03/29/2022 10:16 AM EDT Sexual Orientation Choose not to disclose 2021 10:16 AM EDT documented as of this encounter Plan of Treatment Not on file documented as of this encounter Visit Diagnoses Not on filedocumented in this encounter Additional Health Concerns Assessment Noted Time PHQ-9 Depression Total Score: 7 08/20/19 23 9:48 AM EDT documented as of this encounter Care Teams Launching Pad Mechanic Relationship Specialty Start Date End Date Roxane Mata MD [address] [place] [address] PCP - General Family Medicine 05/11/12 02/14/25 Kera Bowens MD [address] [place] [address] PCP - General Family Medicine 02/15/25 documented as of this encounter
--- OUTSIDE RECORDS SUMMARY | 2025-02-25 11:17 | XMS_ITS | Encounter Summary ---
Author Organization [employer] Address [address] [place] [address] 7 [place] [address] Care Team Providers Care Marketing Administrative Assistant Name Role Phone Roxane Mata MD Primary Care Provider [phone] Kera Bowens MD Primary Care Provider [phone] Reason for Visit * Reason Onset Date Comments Med Refill 08/25/2022 Encounter Details Date Type Department Care Team ([facility] st Contact Info) Description 08/25/2022 Telephone [facility] MED & PEDS 505 [place] [address] Roxane Mata MD 505 [place] [address] Med Refill Social History Tobacco Use Types Packs/Day Years Used Date Smoking Tobacco: Every Day Cigarettes 0.3 35 Smokeless Tobacco: Never Depression Answer Date Recorded Patient Health Questionnaire-9 Score 7 08/19/2022 Depression Answer Date Recorded Patient Health Questionnaire-2 Score 2 08/19/2022 Comments Unknown Sex and Gender Information Value Date Recorded Sex Assigned at Female 03/29/2022 10:16 AM EDT Legal Sex Female 10:16 AM EDT Gender Identity Female 03/29/2022 10:16 AM EDT Sexual Orientation Choose not to disclose 2021 10:16 AM EDT COVID-19 Exposure Response Date Recorded In the last 10 days, have yo u been in contact with someone who was confirmed or suspected to have Coronavirus/COVID-19? No / Unsure 08/19/2022 9:36 AM EDT documented as of this encounter Miscellaneous Notes * Telephone Encounter - Tita Ramirez - 08/25/2022 2:22 PM EDT Tc from Haritha with [facility] requesting a new script for levothyroxine (Synthroid, Levoxyl) 100 MCG tablet to be a 3 month supply not a 1 month supply due to insurance If any questing please contact Haritha at [phone] [id number] [place], [place] 1 [facility] documented in this encounter Plan of Treatment Not on file documented as of this encounter Visit Diagnoses Not on filedocumented in this encounter Additional Health Concerns Assessment Noted Time PHQ-9 Depression Total Score: 7 08/20/19 23 9:48 AM EDT documented as of this encounter Care Teams Marketing Administrative Assistant Relationship Specialty Start Date End Date Roxane Mata MD [address] [place] [address] PCP - General Family Medicine 05/11/12 02/14/25 Kera Bowens MD [address] [place] [address] PCP - General Family Medicine 02/15/25 documented as of this encounter
--- OUTSIDE RECORDS SUMMARY | 2025-02-25 11:17 | XMS_ITS | Encounter Summary ---
Author Organization [employer] Address [address] [facility] 7t [place] [address] Care Team Providers Care Radar Systems Engineer Name Role Phone Roxane Mata MD Primary Care Provider [phone] Kera Bowens MD Primary Care Provider [phone] Reason for Visit * Reason Onset Date Comments Lab Orders 12/16/2023 Encounter Details Date Type Department Care Team ([facility] st Contact Info) Description 12/16/2023 Telephone [facility] MED[facility]INE [address] [place] [address] Roxane Mata MD 505 [place], [place] [phone] Lab Orders Social History Tobacco Use Types Packs/Day Years [...] encounter Miscellaneous Notes * Telephone Encounter - Roaxne Mata MD - 12/20/2023 10:34 AM EDT Needs appt .Will order labs on the day * Telephone Encounter - Ingrid Cervantes RN - 12/16/2023 3:19 PM EDT Please see below request from patient. Last labs dated 01/20/23. Last office visit was sick on site with PCP 01/07/2023. Please advise [place] if pt to be booked for follow up appt after labs completed. * Telephone Encounter - Quang Edwards - 12/16/2023 12:01 PM EDT Tc from patient calling to request lab orders to check thyroid levels and to check out everything states has not done lab works for quite some time and would like the orders to be sent to [facility] Address: [facility] [place] [address] documented in this encounter Plan of Treatment Not on file documented as of this encounter Visit Diagnoses Not on filedocumented in this encounter Additional Health Concerns Assessment Noted Time PHQ-9 Depression Total Score: 7 03/23/20 23 9:48 AM EDT documented as of this encounter Care Teams Radar Systems Engineer Relationship Specialty Start Date End Date Roxane Mata MD [address] [place] [address] PCP - General Family Medicine 05/11/12 02/14/25 Kera Bowens MD [address] [place] [address] PCP - General Family Medicine 02/15/25 documented as of this encounter
--- OUTSIDE RECORDS SUMMARY | 2025-02-25 11:17 | XMS_ITS | Encounter Summary ---
Author Organization [employer] Address [address] [facility] 7t [place] [address] Care Team Providers Care Facility Maintenance Mechanic Name Role Phone Roxane Mata MD Primary Care Provider [phone] Kera Bowens MD Primary Care Provider [phone] Reason for Visit * Reason Comments Med Refill Encounter Details Date Type Department Care Team ([facility] Contact Info) Description 02/12/[address] [facility] CHC MED & PEDS 505 [place], [place] [phone] Heri Angelo MD 505 [place] [address] Acute cough Social History Tobacco Use Types Packs/Day Years [...] housing situation today? I have erica connell 05/25/[address] you li [...] documented as of this encounter Visit Diagnoses Diagnosis Acute cough documented in this encounter Additional Health Concerns Assessment Noted Time PHQ-9 Depression Total Score: 7 08/20/19 23 9:48 AM EDT documented as of this encounter Care Teams Facility Maintenance Mechanic Relationship Specialty Start Date End Date Roxane Mata MD 230 [place] [address] PCP - General Family Medicine 05/11/12 02/14/25 Kera Bowens MD 505 [place] [address] PCP - General Family Medicine 02/15/25 documented as of this encounter
--- OUTSIDE RECORDS SUMMARY | 2025-02-25 11:17 | XMS_ITS | Encounter Summary ---
Author Organization [facility] Address [address] [place], [place] [id number] Phone Care Team Providers Care Field Talent Qualification Specialist Name Role Phone Christian Meza DO Unavailable [phone] Roxane Mata MD Unavailable [phone] Roxane Mata MD Primary Care Provider [phone] Encounter Details Date Type Department Care Team (Late st Contact Info) Description 03/08/2018 Procedure Pass [address] [place] [address] Social History Tobacco Use Types Packs/Day Years Used Date Smoking Tobacco: Every Day Smokeless Tobacco: Never Comments Unknown Sex and Gender Information Value Date Recorded Sex Assigned at Not on file Legal Sex Female 10:32 PM EDT Gender Identity Not on file Sexual Orientation Not on file documented as of this encounter Plan of Treatment Not on file documented as of this encounter Visit Diagnoses Not on filedocumented in this encounter Care Teams Field Talent Qualification Specialist Relationship Specialty Start Date End Date Roxane Mata MD 230 [place] [address] PCP - General 06/02/17 Christian Meza DO [address] [place] [address] Orthopedics & Sports Medicine, [facility] [place] [address] [email or web address] Historical LMR Provider 03/17/17 06/06/21 Roxane Mata MD [address] [place] [address] Historical LMR Provider 03/17/17 2 documented as of this encounter Additional Source Comments The information contained in this document represents components of the legal health record. It is not the complete legal health record.[facility]
--- OUTSIDE RECORDS SUMMARY | 2025-02-25 11:17 | XMS_ITS | Encounter Summary ---
Author Organization [employer] Address [address] [facility] 7t [place] [address] Care Team Providers Care Electrical Systems Drafter Name Role Phone Roxane Mata MD Primary Care Provider [phone] Kera Bowens MD Primary Care Provider Encounter Details Date Type Department Care Team ([facility] st Contact Info) Description 12/20/2023 Orders Only [facility] CHC MED & PEDS 505 [place], [place] [phone] Roxane Mata MD 505 [place] [address] Social History Tobacco Use Types Packs/Day Years [...] documented as of this encounter Care Teams Electrical Systems Drafter Relationship Specialty Start Date End Date Roxane Mata MD [address] [place] [address] PCP - General Family Medicine 05/11/12 02/14/25 Kera Bowens MD [address] [place] [address] PCP - General Family Medicine 02/15/25 documented as of this encounter
--- OUTSIDE RECORDS SUMMARY | 2025-02-25 11:17 | XMS_ITS | Encounter Summary ---
Author Organization [employer] Address [address] [facility] 7t [place] [address] Care Team Providers Care Supervisor Home Restoration Service Name Role Phone Kera Bowens MD Primary Care Provider [phone] Encounter Details Date Type Department Care Team ([facility] st Contact Info) Description 02/25/2025 Telephone [facility] CHC MED & PEDS 505 [place], [place] [phone] Kera Bowens MD 505 [place], [place] [phone] Social History Tobacco Use Types Packs/Day Years [...] as of this encounter Visit Diagnoses Diagnosis Moderate persistent asthma with acute exacerbation documented in this encounter Additional Health Concerns Assessment Noted Time PHQ-9 Depression Total Score: 7 08/20/19 23 9:48 AM EDT documented as of this encounter Care Teams Supervisor Home Restoration Service Relationship Specialty Start Date End Date Kera Bowens MD [address] [place] [address] PCP - General Family Medicine 02/15/25 documented as of this encounter
[2025-02-25 14:30] LABS: Anion Gap 9 (12-20); Blood Urea Nitrogen 24 mg/dL (9-16); Carbon Dioxide 28 mmol/L (22-29); Chloride 109 mmol/L (96-108); Estimated Glomerular Filt Rate 46; Potassium 4.1 mmol/L (3.3-5.1); Sodium 142 mmol/L (135-145)
[2025-02-25 14:31] LABS: Alanine Aminotransferase 21 U/L (0-31); Albumin Level 3.9 g/dL (3.5-5.0); Alkaline Phosphatase 71 U/L (39-117); Aspartate Amino Transferase 23 U/L (5-31); Calcium 8.5 mg/dL (8.4-10.2); Cholesterol 318 mg/dL (<200); HDL Cholesterol 45 mg/dL (>40); Total Protein 6.7 g/dL (6.5-8.0); Triglycerides 254 mg/dL (<150)
== END 2025-02-25 10:07 | disposition home or self-care (01) ==
LOC: HO.CHCLDS 10:06
PROVIDERS: Visit Provider Student in an Organized Health Care Education/Training Program
DX: I10 Essential (primary) hypertension (principal)
CPT/HCPCS: 36415; 80048; 80061; 80076

== ENCOUNTER 2025-05-08 11:04 | Outpatient (REF) | payer MEDICAID, SELFPAY ==
--- NOTE | 2025-05-08 | PFT_ITS ---
Spirometry [] Lung Volumes [] Diffusion Capacity [] Methacholine Challenge [] Flow Volume Loops [] MVV [] MIP/MEP(Max inspiratory pressure/Max expiratory pressure) [] 6 Minute Walk Test [] ABG [] Interpretation [] MTDD
[2025-05-08 11:48] VITALS: PULSE 63
--- OUTSIDE RECORDS SUMMARY | 2025-05-08 17:24 | XMS_ITS | Encounter Summary ---
Author Organization [employer] Address [address] [facility] 7t [place] [address] Care Team Providers Care Distribution Supervisor Name Role Phone Roxane Mata MD Primary Care Provider [phone] Kera Bowens MD Primary Care Provider [phone] Encounter Details Date Type Department Care Team ([facility] st Contact Info) Description 12/20/2023 Orders Only [facility] CHC MED & PEDS 505 [place], [place] [phone] Roxane Mata MD [address] [place] [address] Social History Tobacco Use Types Packs/Day Years [...] documented as of this encounter Care Teams Distribution Supervisor Relationship Specialty Start Date End Date Roxane Mata MD [address] [place] [address] PCP - General Family Medicine 05/11/12 02/14/25 Kera Bowens MD [address] [place] [address] PCP - General Family Medicine 02/15/25 documented as of this encounter
--- OUTSIDE RECORDS SUMMARY | 2025-05-08 17:24 | XMS_ITS | Encounter Summary ---
Author Organization [employer] Address [address] [facility] 7t [place] [address] Care Team Providers Care Author'S Agent Name Role Phone Roxane Mata MD Primary Care Provider Kera Bowens MD Primary Care Provider [phone] Reason for Visit * Reason Onset Date Comments Lab Orders 12/16/2023 Encounter Details Date Type Department Care Team ([facility] st Contact Info) Description 12/16/2023 Telephone [facility] MEDICINE 230 [place] [address] Roxane Mata MD 505 [place], [place] [phone] Lab Orders Social History Tobacco Use Types [...] encounter Miscellaneous Notes * Telephone Encounter - Roxane Mata MD - 12/20/2023 10:34 AM EDT [...] like the orders to be sent to [facility] Address: [facility] [place] [address] documented in this encounter Plan of Treatment Not on file documented as of this encounter Visit Diagnoses Not on filedocumented in this encounter Additional Health Concerns Assessment Noted Time PHQ-9 Depression Total Score: 7 03/23/20 23 9:48 AM EDT documented as of this encounter Care Teams Author'S Agent Relationship Specialty Start Date End Date Roxane Mata MD [address] [place] [address] PCP - General Family Medicine 05/11/12 02/14/25 Kera Bowens MD [address] [place] [address] PCP - General Family Medicine 02/15/25 documented as of this encounter
--- OUTSIDE RECORDS SUMMARY | 2025-05-08 17:24 | XMS_ITS | Clinical Summary ---
Author Organization [facility] Address [address] [place], [place] [phone] Phone Care Team Providers Care Icicle Machine Operator Name Role Phone Roxane Mata MD Primary Care Provider [phone] Allergies No known active allergies Medications ADULT [...] FOBT 2014 SIGMOIDOSCOPY 2014 VIRTUAL COLONOSCOPY 2014 RSV VACCINE (1 - Risk 50-74 years 1-dose series) 2019 COVID-19 VACCINE (2 - Modern a risk [...] topic Medical Devices Not on file [place] [address] [address] [employer]OPERATIVE C3 ACO C3 ACO C3 ACO C3 ACO C3 ACO C3 ACO [address] [place] [address] [place] [address] C3 ACO Advance Directives For more information, please contact: [phone] (9AM - 5PM [facility], Tuesday-Tuesday) * Full Code (Presumed) (Latest Code Status on File) Date Activated Date Inactivated Comments 04/07/2018 7:49 AM 04/07/2018 4:26 PM Care Teams Icicle Machine Operator Relationship Specialty Start Date End Date Roxane Mata MD [address] [place] [address] PCP - General 06/02/17 Additional Source Comments The information contained in this document represents components of the legal health record. It is not the complete legal health record.[facility]
--- OUTSIDE RECORDS SUMMARY | 2025-05-08 17:24 | XMS_ITS | Encounter Summary ---
Author Organization [employer] Address 75 [facility] 7t [place] [address] Care Team Providers Care Jewel Bearing Facer Name Role Phone Roxane Mata MD Primary Care Provider [phone] Kera Bowens MD Primary Care Provider [phone] Reason for Visit * Reason Comments Med Refill Encounter Details Date Type Department Care Team ([facility] Contact Info) Description 02/12/2025 Refill [facility] CHC MED & PEDS 505 [place], [place] [phone] Heri Angelo MD 505 [place] [address] Acute cough Social History Tobacco Use Types [...] documented as of this encounter Care Teams Jewel Bearing Facer Relationship Specialty Start Date End Date Roxane Mata MD 230 [place] [address] PCP - General Family Medicine 05/11/12 02/14/25 Kera Bowens MD 505 [place] [address] PCP - General Family Medicine 02/15/25 documented as of this encounter
--- OUTSIDE RECORDS SUMMARY | 2025-05-08 17:24 | XMS_ITS | Encounter Summary ---
Author Organization [facility] Address [address] [place] [address] Phone Care Team Providers Care Senior Physical Therapist Name Role Phone Christian Meza DO Unavailable [phone] Roxane Mata MD Unavailable [phone] Roxane Mata MD Primary Care Provider [phone] Encounter Details Date Type Department Care Team (Late st Contact Info) Description 04/07/2018 Procedure Pass OR Admitting Dept - Virtual Department 30 [place] [address] Social History Tobacco Use Types Packs/Day Years [...] on filedocumented in this encounter Care Teams Senior Physical Therapist Relationship Specialty Start Date End Date Roxane Mata MD [address] [place] [address] PCP - General 06/02/17 Christian Meza DO [address] [place] [address] Orthopedics & Sports Medicine, [facility] [place] [address] Historical LMR Provider 03/17/17 06/06/21 Roxane Mata MD [address] [place] [address] Historical LMR Provider 03/17/17 2 documented as of this encounter Additional Source Comments The information contained in this document represents components of the legal health record. It is not the complete legal health record.[facility]
--- OUTSIDE RECORDS SUMMARY | 2025-05-08 17:24 | XMS_ITS | Encounter Summary ---
Author Organization [employer] Address [address] [place] [address] 7t [place] [address] Care Team Providers Care Migratory Game Bird Biologist Name Role Phone Roxane Mata MD Primary Care Provider [phone] Kera Bowens MD Primary Care Provider [phone] Reason for Visit * Reason Onset Date Comments Med Refill 08/25/2022 Encounter Details Date Type Department Care Team ([facility] st Contact Info) Description 08/25/2022 Telephone [facility] MED & PEDS 505 [place] [address] Roxane Mata MD 505 [place] [address] Med Refill Social History Tobacco Use Types [...] 2:22 PM EDT Tc from Haritha with [facility] requesting a new script for levothyroxine (Synthroid, Levoxyl) 100 MCG tablet to be a 3 month supply not a 1 month supply due to insurance If any questing please contact Haritha at [phone] [id number] [place], [place] 3 [facility] documented in this encounter Plan of Treatment Not on file documented as of this encounter Visit Diagnoses Not on filedocumented in this encounter Additional Health Concerns Assessment Noted Time PHQ-9 Depression Total Score: 7 08/20/19 23 9:48 AM EDT documented as of this encounter Care Teams Migratory Game Bird Biologist Relationship Specialty Start Date End Date Roxane Mata MD [address] [place] [address] PCP - General Family Medicine 05/11/12 02/14/25 Kera Bowens MD [address] [place] [address] PCP - General Family Medicine 02/15/25 documented as of this encounter
--- OUTSIDE RECORDS SUMMARY | 2025-05-08 17:24 | XMS_ITS | Encounter Summary ---
Author Organization [employer] Address [address] [facility] 7t [place] [address] Care Team Providers Care Front Desk Agent Name Role Phone Roxane Mata MD Primary Care Provider Kera Bowens MD Primary Care Provider [phone] Reason for Visit * Reason Comments Med Refill Encounter Details Date Type Department Care Team ([facility] Contact Info) Description 12/15/2023 Refill [facility] CHC MED & PEDS 505 [place], [place] [phone] Roxane Mata MD 505 [place] [address] Social History Tobacco Use Types Packs/Day Years [...] documented as of this encounter Care Teams Front Desk Agent Relationship Specialty Start Date End Date Roxane Mata MD [address] [place] [address] PCP - General Family Medicine 05/11/12 02/14/25 Kera Bowens MD [address] [place] [address] PCP - General Family Medicine 02/15/25 documented as of this encounter
--- OUTSIDE RECORDS SUMMARY | 2025-05-08 17:25 | XMS_ITS | Clinical Summary ---
Author Organization [employer] Address [address] [place] [address] [address] [place] [address] Care Team Providers Care Computer Assembler Name Role Phone Kera Bowens MD Primary Care Provider [phone] Allergies Active Allergy Reactions Criticality Noted Date Comments Acetaminophen Itching Low 01/20/2023 Oxycodone Itching Low 01/20/2023 Medications Acetaminophen 500 MG capsule Take 1,000 mg by mouth every 6 (six) hours if needed. Active baclofen (Lioresal) 10 MG tablet Take 5 mg by mouth. 12/12/19 22 Active riTUXimab (RITUXAN IV)Indications: optic neuritis IV infusion every 6 months Active nicotine (Nicoderm, Step 2) 14 MG/24HR [...] wheezing. 18 g 02/14/20 25 026 Active atorvastatin (Lipitor) 80 MG tablet Take 1 tablet (80 mg) by mouth Once per day. 30 tablet 11 03/05/20 25 026 Active cholecalciferol (Vitamin D3) 25 MCG (1000 UT) tablet TAKE 1 TABLET BY MOUTH EVERY DAY 90 tablet 3 03/28/20 25 Active Nystop 403276 UNIT/GM powder APPLY TOPICALLY TWICE DAILY 60 g 3 04/09/20 25 Active Mometasone Furoate 100 MCG/ACT aerosolIndicati ons:Tobacco dependence syndrome Inhale 1 Act (100 mcg) 2 times daily. 180 Act 5 3:58 PM EST 04/10/20 25 Active nystatin (Mycostatin) 796420 UNIT/GM powder Apply topically 2 times daily. 60 g 3 02/09/20 24 025 Discontinued Mometasone Furoate (Asmanex HFA) 50 MCG/ACT aerosolIndicati ons:Moderate persistent asthma with acute exacerbation Inhale 2 Act (100 mcg) 2 times daily. 13 g 5 02/26/20 25 025 Discontinued(Co st of medication) Hospital, Clinic, or Other Facility Administered Medication Ordered Dose Route Frequency Start Date End Date Status ipratropium-albuterol (Duo-Neb) 0.5-2.5 mg/3 mL nebulizer solution 3 mgIndications:Moderate persistent asthma with acute exacerbation 3 mg NEBULIZATION Once 02/15/2025 Acti ve Active Problems Problem Noted Date Diagnosed Date [...] Encounters Date Type Department Care Team Description 04/10/2025 Telephone [facility] [address] [place] [address] Kera Bowens MD Medication Question 04/08/2025 Refill [facility] [address] [place] [address] Roxane Mata MD 03/28/2025 Refill [facility] [address] [place] [address] Roxane Mata MD 03/21/2025 Telephone [facility] [address] [place] [address] Kera Bowens MD 03/20/2025 Telephone [facility] [address] [place] [address] Kera Bowens MD 03/05/2025 Telephone [facility] [address] [place] [address] Roxane Mata MD 03/05/2025 Results Follow-Up [facility] [address] [place] [address] Roxane Mata MD Basic Metabolic Panel, Lipid Panel, Standard, Hepatic Function Panel 03/05/2025 Orders Only [facility] [address] [place] [address] Roxane Mata MD 02/26/[address] [address] Kera Bowens MD 02/25/2025 Telephone [facility] [address] [place] [address] Kera Bowens MD 02/15/2025 10:00 AM EDT Office Visit [facility] [address] [place] [address] Roxane Mata MD Moderate persistent asthma with acute exacerbation (Primary Dx); Benign hypertension; Pure hypercholesterolemia 02/15/2025 Telephone [facility] [address] [place] [address] Kera Bowens MD Prior Authorization 02/15/2025 Travel 02/15/2025 Telephone [facility] [address] [place] [address] Roxane Mata MD Chart Prep 02/13/2025 8:30 AM EDT Telemedicine [facility] [address] [place] [address] Teja Petit MD Acute cough 02/13/2025 Travel 02/12/2025 Refill [facility] [address] [place] [address] Heri Angelo MD Acute cough 02/12/2025 Refill [facility] [address] [place] [address] Roxane Mata MD Acute cough from Last 3 Months Immunizations Immunization Administration [...] is your housing situation today? I have ericaeleazar connell 05/25/[address] you [...] 1990 Cervical Cancer Screening 1999 HPV/Cotest 1999 RSV Patients and Patients Aged 60 years or older (1 - Risk 50-74 years 1-dose series) 2019 Zoster Vaccines (1 of 2) 2019 Mammogram 10/26/2019 10/25/2017 Depression Screening 08/20/2023 08/19/2022, 08/20/19 COVID-19 Vaccine ( - season) 2025 10/30/2020, 10/01/2020 Influenza Vaccine (#1) 2025 , 03/22/2019, 03/02/2017, Additional history exists SDOH Screening 05/25/2025 05/25/2024 Alcohol/Substance Use Screening 02/15/2026 02/15/2025 Disability Screening 02/15/2026 02/15/2025 Tobacco Screening 02/15/2026 02/15/2025 DTaP/Tdap/Td Vaccines (3 - Td or Tdap) 07/27/2029 07/27/2019, 03/22/2019 Lipid Panel 02/25/2030 02/25/2025, 01/28, 12/31/2021, Additional history exists HIB Vaccines Aged Out No longer eligi [...] Procedure Name Priority Date/Time Associated Diagnosis Comments HEPATIC FUNCTION PANEL Routine 02/25/2025 10:08 AM EDT Benign hypertension LIPID PANEL, STANDARD Routine 02/25/2025 10:08 AM EDT Benign hypertension BASIC METABOLIC PANEL Routine 02/25/2025 10:08 AM EDT Benign hypertension BI MAMMOGRAM SCREENING BILATERAL Routine 10/25/2017 11:20 AM EDT from Last 3 Months or Most Recently Relevant to Health Maintenance Results * Hepatic Function Panel (02/25/2025 10:08 AM EDT) Bilirubin, Total 0.3 0.0 - 1.0 mg/dL [facility] Bilirubin, Direct 0.1 0.0 - 0.5 mg/dL [facility] Aspartate Amino Transferase 23 5 - 31 U/L [facility] Alanine Aminotransferase 21 0 - 31 U/L [facility] Total Protein 6.7 6.5 - 8.0 g/dL [facility] Albumin Level 3.9 3.5 - 5.0 g/dL [facility] Alkaline Phosphatase 71 39 - 117 U/L [facility] Blood Venous blood specimen / Unknown 02/25/2025 10:08 AM EDT 02/25/2025 2:07 PM EDT us Roxane Mata MD LAB BLOOD ORDERABLES Final Resul t [facility] [address] [place] [address] [phone] * (ABNORMAL) Lipid Panel, Standard (02/25/2025 10:08 AM EDT) Triglycerides 254(H) <150 mg/dL [facility] Comment:Desirable Triglyceri de: less than 150 mg/dLBorderline High Triglyceride 150-199 mg/dLHigh Triglyceride: 200-499 mg/dLVery High Triglyceride: greater than or equal to 5OO mg/dL Cholesterol 318(H) <200 mg/dL [facility] Comment:Desirable Cholestero l: less than 200 mg/dLBorderline High Cholesterol: 200-239 mg/dLHigh Cholesterol: greater than 239 mg/dL LDL Cholesterol Calculated 223(H) <100 mg/dL [facility] Comment:Desirable LDL: less than 100 mg/dLNear Optimal/Above Optimal LDL: 110- 129 mg/dLBorderline High LDL: 130-159 mg/dLHigh LDL: 160-189 mg/dLVery High LDL: greater than or equal to 190 mg/dL HDL Cholesterol 45 >40 mg/dL [facility] Comment:Desirable HDL: great er than 40 mg/dL Note: This HDL assay may give artificially low results in patients with liver disease. Blood Venous blood specimen / Unknown 02/25/2025 10:08 AM EDT 02/25/2025 2:07 PM EDT us Roxane Mata MD LAB BLOOD ORDERABLES Final Resul t [facility] [address] [place] [address] [phone] * (ABNORMAL) Basic Metabolic Panel (02/25/2025 10:08 AM EDT) Sodium 142 135 - 145 mmol/L [facility] Potassium 4.1 3.3 - 5.1 mmol/L [facility] Chloride 109(H) 96 - 108 mmol/L [facility] Carbon Dioxide 28 22 - 29 mmol/L [facility] Anion Gap 9(L) 12 - 20 [facility] Urea Nitrogen (BUN) 24(H) 9 - 16 mg/dL [facility] Creatinine, Serum 1.22 0.5 - 1.4 mg/dL [facility] Estimated Glomerular Filt Rate 46 [facility] Comment:Chronic Kidney Disea se: Estimated GFR < 60 mL/min/1.20u7Kkezyl Kidney Disease: Estimated GFR < 15 mL/min/1.73m2 Glucose 129(H) 60 - 115 mg/dL [facility] Calcium 8.5 8.4 - 10.2 mg/dL [facility] Blood Venous blood specimen / Unknown 02/25/2025 10:08 AM EDT 02/25/2025 2:07 PM EDT Roxane Mata MD LAB BLOOD ORDERABLES Final Resul t [facility] [address] [place] [address] [phone] * 3D DIGITAL MATTHEW SCR MAMMO [...] Most Recently Relevant to Health Maintenance [place] [address] [place] [address] C3 Care Teams Computer Assembler Relationship Specialty Start Date End Date Kera Bowens MD [address] [place] [phone] PCP - General Family Medicine 02/15/25
--- OUTSIDE RECORDS SUMMARY | 2025-05-08 17:25 | XMS_ITS | Encounter Summary ---
Author Organization [facility] Address [address] [place], [place] [id number] Phone Care Team Providers Care Space Planner Name Role Phone Christian Meza DO Unavailable [phone] Roxane Mata MD Unavailable [phone] Roxane Mata MD Primary Care Provider [phone] Encounter Details Date Type Department Care Team (Late st Contact Info) Description 03/08/2018 Procedure Pass [address] [place] [address] Social History Tobacco Use Types Packs/Day Years [...] on filedocumented in this encounter Care Teams Space Planner Relationship Specialty Start Date End Date Roxane Mata MD [address] [place] [address] PCP - General 06/02/17 Christian Meza DO [address] [place] [address] Orthopedics & Sports Medicine, [facility] [place] [address] [email or web address] Historical LMR Provider 03/17/17 06/06/21 Roxane Mata MD [address] [place] [id number] Historical LMR Provider 03/17/17 2 documented as of this encounter Additional Source Comments The information contained in this document represents components of the legal health record. It is not the complete legal health record.[facility]
== END 2025-05-08 11:05 ==
LOC: HO.RESP 11:04
PROVIDERS: PCP Family Medicine; Visit Provider Internal Medicine
DX: R05.1 Acute cough (principal)
CPT/HCPCS: 94060; 94640; 94727; 94729

== ENCOUNTER → 2025-05-08 11:09 | Outpatient (BNV) | payer MEDICAID, SELFPAY | PROVIDERS: PCP Family Medicine; Visit Provider Internal Medicine Pulmonary Disease | DX: J98.4 Other disorders of lung (principal) | CPT/HCPCS: 94060; 94727; 94729 ==